=== PATIENT | male | born 1975 | race African-American/Black ===

== ENCOUNTER 2019-12-13 10:12 | Inpatient (IN) | payer MEDICARE, OTHER ==
[~2019-12-13 10:12] MED LIST: Heparin 10,000 UNITS/ 10 ML VIAL ONE
--- NOTE | 2019-12-13 10:56 | RAD ---
EXAM: CHEST ONE VIEW HISTORY: Fever. COMPARISON: None FINDINGS: A dual-lead left subclavian AICD device is noted in place. Cardiac silhouette is enlarged. Pulmonary vasculature is within normal limits The lungs are clear. The osseous structures are intact. IMPRESSION: 1. No acute cardiopulmonary process. 2. Cardiomegaly.
[2019-12-13 11:06] LABS: Hemoglobin 7.7 g/dL (14.0-18.0); Mean Corpuscular HGB CONC 32.9 g/dL (32.0-36.0); Mean Corpuscular Hemoglobin 35.6 pg (27.0-31.0); Mean Platelet Volume 7.3 fL (7.4-10.4); Platelet Count 229 thou/uL (130-400); RBC Distribution Width 16.3 % (11.5-14.5); Red Blood Cell (RBC) Count 2.15 mill/uL (4.70-6.10); White Blood Cell (WBC) Count 9.5 thou/uL (4.8-10.8)
[2019-12-13 11:37] LABS: Band 9 % (5-11); Eosinophils 4 % (0-10); Lymphocytes 16 % (21-51); MDiff Complete? YES; Macrocytosis SLIGHT = 6-15 cells (100X) (0-5/hpf); Monocytes 4 % (0-10); Myelocyte 1 % (0-0); Neutrophil 65 % (42-75); Platelet Morphology Comment Appears Adequate; Polychromasia SLIGHT = 2-3 cells (100X) (0-2/hpf); Reactive Lymphocytes 1 % (0-10)
[2019-12-13 11:50] LABS: ALT (SGPT) 9 U/L (8-55); AST (SGOT) 13 U/L (5-34); Albumin 4.6 g/dL (3.5-5.0); Alkaline Phosphatase 99 U/L (40-110); Anion Gap 21 mmol/L (10-20); BUN (Urea Nitrogen) 97 mg/dL (8.9-20.6); Calc. Creatinine Clearance 0 mL/min (70-130); Calcium 10.2 mg/dL (7.8-10.44); Carbon Dioxide 21 mmol/L (22-29); Chloride 113 mmol/L (98-107); Estimated GFR-MDRD 10; Globulin 2.7 g/dL (2.4-3.5); Glucose 110 mg/dL (70-105); Potassium 5.6 mmol/L (3.5-5.1); Protein, Total 7.3 g/dL (6.0-8.3); Sodium 149 mmol/L (136-145)
[2019-12-13 12:10] LABS: CKMB 2.1 ng/mL (0-6.6)
[2019-12-13 12:48] LABS: Bilirubin Negative (Negative); Blood, Urine Trace (Negative); Clarity Clear (Clear); Glucose, Urine (Dipstick) Normal (Negative); Leukocyte Negative Leu/uL (Negative); Nitrite Negative (Negative); Protein, Urine (Dipstick) 100 mg/dL (Neg-Trace); RBC/HPF 0-3 HPF (0-3); Squamous Epithelial None Seen HPF (0-3); Urobilinogen Normal mg/dL (Less than 2); WBC/HPF 0-3 HPF (0-3)
[2019-12-13 12:49] LABS: Bacteria/HPF Rare-Few HPF (None Seen)
[2019-12-13] MEDS ORDERED: Senokot S 8.6-50 MG TAB PO PRN (15:29)
[2019-12-13] MEDS ORDERED: CEFAZOLIN 2 GM in Premix Bag 1 BAG IVPB SCH (17:15)
--- NOTE | 2019-12-13 18:16 | CON ---
DATE OF CONSULTATION: HISTORY OF PRESENT ILLNESS: Matthew Benavides is a 44-year-old black male patient, lives with his brother, who has a left subclavian vein pacemaker seen in the emergency room, treated for COVID precautions. On 12/08, he had a COVID test drawn, but pending. He has COVID precautions. He was not feeling well, and laboratories obtained at 10 a.m. this morning revealed a hemoglobin of 7 and a potassium of 5.6. I was looking at my patient list and saw the patient on my list, was headed up to see him. I was not called by any physician. I arrived on the floor and was called by nursing at 1630 hours to see him. I was asked to place a dialysis catheter to initiate dialysis. Carbon dioxide is 21. He is a patient who has been followed by Dr. Rehman for some time for chronic renal failure. He has a history of chronic kidney disease with hypertensive nephropathy. BUN is 97, today, and in 2016, it was normal. Creatinine is 7.43, potassium is 5.6. Creatinine was normal in 2016. ALLERGIES: NONE. SOCIAL HISTORY: Tobacco use reported. Alcohol, none. MEDICATIONS: None listed. PAST SURGICAL HISTORY: Pacemaker, left subclavian vein, otherwise unknown. PAST MEDICAL HISTORY: Chronic kidney disease, hypertension, otherwise unknown. Medication list unknown. In 2016, it was noted that he did not have any past surgical history, but smoked 1 pack a day. There is no medication list on a 2016 visit. The patient states that he thinks he had the pacemaker placed at [facility], he thinks for bradycardia. Past history is uncertain. The patient's family cannot be contacted. FAMILY HISTORY: Not obtainable, reliable. REVIEW OF SYSTEMS: Noncontributory, except as noted above, but the patient has a cognitive impairment and reliability is not certain. PHYSICAL EXAMINATION: VITAL SIGNS: Height 6 feet, weight 149 pounds, 20 BMI, temperature 96.9, pulse rate 76, blood pressure 141/103. HEAD, EARS, EYES, NOSE, AND THROAT: Unremarkable. LUNGS: Clear to auscultation. CARDIAC: Regular rate and rhythm without murmur or gallop. ABDOMEN: Soft, nontender. EXTREMITIES: No ankle edema. Palpable radial pulses. Right antecubital IV. Left subclavian vein pacemaker. Left wrist IV. ASSESSMENT: 1. End-stage renal disease. We will need acute dialysis access for his hyperkalemia. He is mildly acidotic. We would plan bedside placement of a hemodialysis catheter. Family cannot be found and will not return calls, thus it is done as an emergency. COVID precautions were taken during this interview and placement of the catheter. 2. Hypertension. 3. Tobacco abuse. 4. Coronavirus disease precautions due to low-grade fever. No cough. PLAN: Placement in 48 hours, probably of a definitive cuffed tunneled dialysis catheter and an AV fistula. Job ID: [id number]
[2019-12-13] MEDS ORDERED: hydrALAZINE 20 MG/ML VIAL SLOW IVP PRN (20:04)
[2019-12-13] MEDS: hydrALAZINE 20 MG/ML VIAL SLOW IVP PRN (20:23)
[2019-12-14] MEDS: hydrALAZINE 20 MG/ML VIAL SLOW IVP PRN (01:58)
[2019-12-14] MEDS: Acetaminophen 325 MG TAB PO PRN ×2 (02:04→08:29)
[2019-12-14 05:02] LABS: Band 4 % (5-11); Hemoglobin 7.9 g/dL (14.0-18.0); Lymphocytes 15 % (21-51); MDiff Complete? YES; Mean Corpuscular HGB CONC 33.1 g/dL (32.0-36.0); Mean Corpuscular Hemoglobin 34.1 pg (27.0-31.0); Mean Platelet Volume 7.2 fL (7.4-10.4); Monocytes 11 % (0-10); Neutrophil 70 % (42-75); Platelet Count 149 thou/uL (130-400); Platelet Morphology Comment Appears Adequate; RBC Distribution Width 17.5 % (11.5-14.5); White Blood Cell (WBC) Count 7.5 thou/uL (4.8-10.8)
[2019-12-14 05:11] LABS: Albumin 4.1 g/dL (3.5-5.0); Anion Gap 17 mmol/L (10-20); BUN (Urea Nitrogen) 84 mg/dL (8.9-20.6); BUN/Creatinine Ratio 12.46; Calc. Creatinine Clearance 14 mL/min (70-130); Carbon Dioxide 25 mmol/L (22-29); Chloride 105 mmol/L (98-107); Estimated GFR-MDRD 11; Glucose 122 mg/dL (70-105); Iron 82 ug/dL (65-175); Iron Binding Capacity, Total 253 mcg/dL (261-462); Phosphorus 4.2 mg/dL (2.3-4.7); Potassium 4.9 mmol/L (3.5-5.1); Sodium 142 mmol/L (136-145)
[2019-12-14 05:39] LABS: Ferritin 352.51 ng/mL (22-322)
[2019-12-14 05:51] LABS: HBSAg Index 0.21 S/CO (0-0.99); Hep B Surf Ag Non-Reactive S/CO (NonReactive); Hep C IgG Ab Non-Reactive (NonReactive); Hep C Index 0.03 S/CO (0-0.79)
[2019-12-14 06:15] LABS: Hep B Core Total Ab Reactive (NonReactive); Hep B Surf AB Reactive (NonReactive)
[2019-12-14 06:19] LABS: Hep B Core Total Index 3.35 S/CO (0-0.79)
[2019-12-14] MEDS ORDERED: Non-Formulary Item 1 EACH (Magnesium Oxide [Magnesium] 400 MG) PO SCH (09:00)
[2019-12-14] MEDS ORDERED: Prevnar 13-Val Conj/PF 0.5 ML SYRINGE IM ONE (09:00)
--- NOTE | 2019-12-14 09:22 | CON ---
DATE OF CONSULTATION: CONSULTING PHYSICIAN: Ori Jones MD REQUESTING PHYSICIAN: REASON FOR CONSULTATION: Advanced kidney disease. IMPRESSION: 1. Advanced chronic kidney disease, stage 5 likely in the context of cardiorenal syndrome. 2. Cardiomyopathy, status post Automatic Implantable Cardioverter Defibrillator. 3. Hyperkalemia in the context of problem #1. 4. Hypertension. PLAN: 1. The patient is clearly at a point of requiring renal replacement therapy. 2. access in this patient. 3. Vein mapping in preparation for [facility] dialysis access. 4. I and O status to evaluate this patient's anemia, likely to be anemia of chronic kidney disease. 5. serology. 6. consult to outpatient dialysis placement. HISTORY OF PRESENT ILLNESS: A 44-year-old gentleman, who came to my office. He was noted to be clearly short of breath and he was sent for lab work . Decision was taken to send this patient to the ER given the complaint of some respiratory . PAST MEDICAL HISTORY: Significant for advanced cardiomyopathy, hypertension, chronic kidney disease, stage 5. MEDICATIONS: Reviewed and as documented on [employer]. ALLERGIES: NO KNOWN DRUG ALLERGIES. FAMILY HISTORY: outside hospital. No current history of kidney disease. SOCIAL HISTORY: No illicit drug use. No alcohol. The patient is mentally challenged. REVIEW OF SYSTEMS: As documented in the above history. All the other systems were reviewed and found not to be significantly related to present illness.. LABORATORY INVESTIGATION: Showed a hemoglobin of 7.7. Chemistry showed a sodium of 149 with potassium of 5.6, BUN of 97, and creatinine of 7.43. PHYSICAL EXAMINATION: GENERAL: The patient was found to be in some respiratory distress. Noted with the following vital signs. VITAL SIGNS: Afebrile, temperature 98.2, pulse 82, respiratory rate of 18, O2 saturation 99% with a blood pressure 180/80. HEENT: Unremarkable. CARDIOVASCULAR SYSTEM: First and second heart sounds were heard. RESPIRATORY SYSTEM: Clear to auscultation. DIGESTIVE SYSTEM: Abdomen somewhat distended. EXTREMITIES: No significant peripheral edema. SKIN: No new gross rash. LYMPHATICS: No peripheral lymphadenopathy. SUMMARY: A 44-year-old gentleman, who presented with some respiratory distress and being admitted for indication of hemodialysis. Job ID: [id number]
[2019-12-14] MEDS ORDERED: Heparin 10,000 UNITS/ 10 ML VIAL ONE ×2 (10:38→10:42)
[2019-12-14] MEDS: Magnesium Oxide 400 MG TAB PO SCH ×2 (10:42→20:02)
[2019-12-14] MEDS: Isosorbide Mononitrate (ER) 30 MG TAB PO SCH (10:43)
--- NOTE | 2019-12-14 11:08 | OP ---
DATE OF PROCEDURE: 12/13/2019 PREOPERATIVE DIAGNOSES: Hyperkalemia, end-stage renal disease, need acute dialysis access. POSTOPERATIVE DIAGNOSES: Hyperkalemia, end-stage renal disease, need acute dialysis access. PROCEDURE PERFORMED: Removal of right antecubital IV, right femoral vein Trialysis catheter. ANESTHESIA: 1% Xylocaine. DESCRIPTION OF PROCEDURE: With the patient at bedside, his right groin was clipped of hair, prepared with ChloraPrep, and draped in routine fashion. Local anesthetic was infiltrated in the skin and subcutaneous tissue. Trocar catheter was cannulated in the femoral vein. J-wire was threaded. Trocar catheter was removed. Skin site was enlarged sharply. Small and medium size dilators were placed over the J-wire into the femoral vein and removed. Distal port of the Trialysis catheter was placed with J-wire in the femoral vein. J-wire was removed. Catheter was secured with 2 interrupted suture of 3-0 nylon. Each port was aspirated with blood, flushed with heparinized saline solution. The patient tolerated the procedure well dressing applied. Job ID: [id number]
--- NOTE | 2019-12-14 12:24 | PRG ---
DATE OF SERVICE: 12/14/2019 SUBJECTIVE: Matthew Benavides is undergoing dialysis. He has had some oozing from his groin dialysis catheter. Of note is that when he was admitted, he had an IV in his right AC. He has a left subclavian vein pacemaker. The IV in his right AC was removed immediately. Ultrasound vein mapping is pending. Ultrasound pending COVID testing. Apparently, he [facility], results pending and repeat testing done on admission, results pending. When I saw the patient, the patient states he had a cough a few days, but does not have a cough, he has been afebrile in the hospital. Chest x-ray obtained, is unremarkable. Unlikely that the patient has COVID, this is only initiated because of low-grade temperature reported from somewhere in the emergency room. The patient's temperature was 99, 98 degrees. No fever noted this admission or in the emergency room, PLAN: Hemodialysis catheter, central line, right arm fistula most likely tomorrow. Job ID: [id number]
--- NOTE | 2019-12-14 13:06 | HP ---
CHIEF COMPLAINT: Sent for possible dialysis. HISTORY OF PRESENT ILLNESS: The patient is a 44-year-old male who lives with a brother, who comes in for dialysis. The patient was really unable to tell me much about his current situation. He denies, however, any shortness of breath or chest pain. There was some noted that he had a low-grade fever, for which he was put on antibiotics. Per ER, they wanted to rule him out for COVID. Per notes, he has advanced kidney disease, and he was sent here for starting him on dialysis. I tried to call the patient's brother, unable to get a hold of him. There were no previous records in the computer for me to review his previous medical history. PAST MEDICAL HISTORY: He has a history of renal disease, unclear of from what. He also has a history of pacemaker, defibrillator, the patient is unable to tell me why. He has a history of hypertension. PAST SURGICAL HISTORY: He does have a pacemaker. Unable to get most of the history since the patient is unable to tell me this. SOCIAL HISTORY: He does smoke cigarettes daily. He has smoked for about 15 years. No alcohol use or drug use per patient. CODE STATUS: Unclear at this time. ALLERGIES: NO KNOWN DRUG ALLERGIES. MEDICATIONS: He is on carvedilol 25 mg twice a day, hydralazine 50 mg q.8 hours, isosorbide 30 mg daily, magnesium 400 mg twice a day. He is also on Corlanor 5 mg p.o. b.i.d. REVIEW OF SYSTEMS: All negative except for the ones mentioned above in the HPI. PHYSICAL EXAMINATION: VITAL SIGNS: Temperature 99.6, pulse 89, respiratory rate 19, saturation 98% on room air, blood pressure 142/82. GENERAL: He is awake, alert, and oriented to self and place. CV: S1 and S2 present. No murmurs, rubs, or gallops. LUNGS: Clear to auscultation. No rhonchi or wheezes noted. ABDOMEN: Soft and nontender. Bowel sounds present x2. EXTREMITIES: Some edema. Pedal pulses are present x2. NEUROVASCULAR: No focal deficits noted. SKIN: No cuts, lesions, or bruises noted. PSYCH: The patient is slow to respond on certain things. The patient does have an intellectual disability upon talking with him. LABORATORY RESULTS: WBCs of 9.5, hemoglobin of 7.7, hematocrit of 23.3, platelets of 229. Chemistry; sodium of 149, potassium of 5.6, BUN of 97, creatinine 7.43. Troponin was mildly elevated at 0.096. He did have a chest x-ray that did not show any acute infiltrates or any abnormalities. He does have some cardiomegaly. ASSESSMENT AND PLAN: The patient is a 44-year-old male, who presents to the hospital with need for dialysis. 1. End-stage renal disease, on dialysis. This is new for him. Surgery has been consulted, so his Nephrology will put . 2. and start him on dialysis. 3. Possible coronavirus disease rule out. The patient was on antibiotics for low-grade fever; however, here he has not had a fever. We will continue the Levaquin for now. 4. Hypertension. We will continue his home medications. 5. Possible heart failure, unclear if it is systolic or diastolic. I will try and get more information from the patient's brother. I will try and call him again. 6. Deep venous thrombosis prophylaxis. We will put the patient on subcu Lovenox. Job ID: [id number]
[2019-12-14] MEDS: Enoxaparin Sodium 30 MG/0.3 ML SYRINGE SC SCH (13:11)
[2019-12-14] MEDS ORDERED: Non-Formulary Item 1 EACH (Hydralazine Hcl [Hydralazine Hcl] 50 MG) PO SCH (14:00)
[2019-12-14] MEDS: hydrALAZINE 25 MG TAB PO SCH ×2 (15:11→20:02)
[2019-12-14] MEDS ORDERED: Carvedilol 25 MG TAB PO SCH (16:30)
[2019-12-14] MEDS: Carvedilol 25 MG TAB PO SCH (17:06)
--- NOTE | 2019-12-14 19:28 | PRG ---
DATE OF SERVICE: 12/14/2019 SUBJECTIVE: The patient is seen and examined. Noted with the following vital signs. OBJECTIVE: VITAL SIGNS: Afebrile, temperature 97.8, pulse 89, respiratory rate of 16, O2 saturation of 100%, and blood pressure 137/90. HEENT: Unremarkable. CARDIOVASCULAR SYSTEM: First and second heart sounds were heard. RESPIRATORY SYSTEM: Clear to auscultation. DIGESTIVE SYSTEM: Revealed a benign abdomen. EXTREMITIES: No peripheral edema. SKIN: No new gross rash. LYMPHATICS: No peripheral lymphadenopathy. LABORATORY INVESTIGATION: Showed a hemoglobin of 7.9. Chemistry showed a ferritin of 325, iron saturation of 32, creatinine 6.74 with potassium of 4.9. IMPRESSION: 1. End-stage renal disease, on hemodialysis. 2. . 3. Hypertension. 4. Cardiomyopathy. PLAN: 1. The patient to continue with daily dialysis. We will possibly secure a tunneled dialysis catheter, so the femoral dialysis catheter will be discontinued in the next 24 hours. 2. Further management will be dependent on the clinical course. resort manager to be consulted and outpatient dialysis placement. Job ID: [id number]
[2019-12-15 05:12] LABS: Anion Gap 13 mmol/L (10-20); BUN (Urea Nitrogen) 62 mg/dL (8.9-20.6); BUN/Creatinine Ratio 11.09; Calc. Creatinine Clearance 16 mL/min (70-130); Calcium 9.8 mg/dL (7.8-10.44); Carbon Dioxide 31 mmol/L (22-29); Chloride 103 mmol/L (98-107); Estimated GFR-MDRD 14; Glucose 103 mg/dL (70-105); Magnesium 2.1 mg/dL (1.6-2.6); Phosphorus 5.1 mg/dL (2.3-4.7); Potassium 4.8 mmol/L (3.5-5.1); Sodium 142 mmol/L (136-145)
[2019-12-15] MEDS: Carvedilol 25 MG TAB PO SCH ×2 (09:14→17:18)
[2019-12-15] MEDS: Magnesium Oxide 400 MG TAB PO SCH ×2 (09:14→21:26)
[2019-12-15] MEDS: Isosorbide Mononitrate (ER) 30 MG TAB PO SCH (09:14)
[2019-12-15] MEDS: hydrALAZINE 25 MG TAB PO SCH ×3 (09:14→21:26)
[2019-12-15] MEDS: Enoxaparin Sodium 30 MG/0.3 ML SYRINGE SC SCH (09:15)
[2019-12-15 10:00] LABS: Hemoglobin 7.6 g/dL (14.0-18.0); Mean Corpuscular HGB CONC 32.2 g/dL (32.0-36.0); Mean Platelet Volume 7.1 fL (7.4-10.4); Platelet Count 93 thou/uL (130-400); RBC Distribution Width 17.1 % (11.5-14.5); White Blood Cell (WBC) Count 5.6 thou/uL (4.8-10.8)
[2019-12-15 10:17] LABS: #Eosinphils 0.2 thou/uL (0.0-0.7); #Lymphocytes 0.9 thou/uL (1.20-3.40); #Monocytes 0.8 thou/uL (0.11-0.59); #Neutrophils 3.6 thou/uL (1.40-6.50); %Basophils 0.2 % (0.0-1.0); %Eosinophils 3.2 % (0.0-10.0); %Monocytes 14.1 % (0.0-10.0); %Neutrophils 65.5 % (42.0-75.0)
[2019-12-15 10:18] LABS: MDiff Complete? YES; Macrocytosis SLIGHT = 6-15 cells (100X) (0-5/hpf); Platelet Morphology Comment Appears Decreased; Polychromasia SLIGHT = 2-3 cells (100X) (0-2/hpf)
[2019-12-15 10:25] LABS: Hypochromia SLIGHT = 6-15 cells (100X) (0-5/hpf); Ovalocytes SLIGHT = 2-5 cells (100X) (0-1/hpf)
--- NOTE | 2019-12-15 10:50 | PRG ---
DATE OF SERVICE: 12/15/2019 Matthew Benavides' COVID report is pending. The patient is 99.2 degrees, heart rate 92, and blood pressure 138/95. There are no respiratory symptoms. The patient had a COVID test reported from the group home at their testing center from [facility] was delayed due to equipment malfunction. COVID tests are expected to return today. The patient has been afebrile since being in the hospital for 3 days. He has no upper respiratory infections. His chest x-ray is normal. He does not have hypoxia. He does not have muscle aches. The only reason the COVID test was drawn in the emergency room because he had a temperature of 99 to 100.3 degrees for 3 weeks. With dialysis, oozing from around his groin dialysis catheter has become minimal. Today, we have planned a placement of a hemodialysis catheter and right arm fistula, however, that will be postponed until his COVID test return. This should be available today. Tentatively, I have scheduled him for for his right arm fistula, hemodialysis catheter central line. Vein mapping has not been performed due to the COVID testing pending. Job ID: [id number]
--- NOTE | 2019-12-15 13:34 | EKG ---
Test Reason : Blood Pressure : / mmHG Vent. Rate : 076 BPM Atrial Rate : 076 BPM P-R Int : 150 ms QRS Dur : 088 ms QT Int : 384 ms P-R-T Axes : 062 -15 102 degrees QTc Int : 432 ms Normal sinus rhythm T wave abnormality, consider lateral ischemia Abnormal ECG Confirmed by LAXMI AGUILAR ([id number]), housekeeping laundry worker ALEX NEW ([id number]) on 12/15/2019 1:34:06 PM Referred By: Confirmed By:LAXMI AGUILAR
--- NOTE | 2019-12-15 17:07 | PRG ---
DATE OF SERVICE: 12/15/2019 SUBJECTIVE: The patient was seen and noted with the following vital signs. OBJECTIVE: VITAL SIGNS: Afebrile, temperature 98.5, pulse 82, blood pressure 137/75, respiratory rate of 18, O2 saturation of 99%. HEENT: Unremarkable. CARDIOVASCULAR: First and second heart sounds were heard. RESPIRATORY: Clear to auscultation. DIGESTIVE SYSTEM: Revealed a benign abdomen with positive bowel sounds. EXTREMITIES: No peripheral edema. SKIN: No new gross rash. LYMPHATICS: No peripheral lymphadenopathy. IMPRESSION: 1. End-stage renal disease, on hemodialysis. 2. Advanced cardiomyopathy. 3. Mental retardation. PLAN: 1. The patient is continued with daily dialysis gradually increasing the duration and the degree of clearance. 2. Awaiting the COVID status prior to scheduling this patient for long-term access. 3. Further management to be dependent on the clinical course. 4. software test manager already on the case is planning for outpatient dialysis placement. Job ID: [id number]
[2019-12-15] MEDS: Tuberculin PPD 0.1 ML VIAL I-DERMAL SCH ×2 (23:46)
[2019-12-16 05:38] LABS: Band 1 % (5-11); Hemoglobin 6.8 g/dL (14.0-18.0); Lymphocytes 20 % (21-51); MDiff Complete? YES; Mean Corpuscular HGB CONC 33.1 g/dL (32.0-36.0); Mean Corpuscular Hemoglobin 34.2 pg (27.0-31.0); Mean Platelet Volume 7.5 fL (7.4-10.4); Monocytes 17 % (0-10); Neutrophil 61 % (42-75); Platelet Count 98 thou/uL (130-400); Platelet Morphology Comment Appears Decreased; RBC Distribution Width 16.6 % (11.5-14.5); Reactive Lymphocytes 1 % (0-10); White Blood Cell (WBC) Count 4.7 thou/uL (4.8-10.8)
[2019-12-16 05:58] LABS: Albumin 3.9 g/dL (3.5-5.0); Anion Gap 16 mmol/L (10-20); BUN (Urea Nitrogen) 76 mg/dL (8.9-20.6); BUN/Creatinine Ratio 10.84; Calc. Creatinine Clearance 13 mL/min (70-130); Calcium 9.5 mg/dL (7.8-10.44); Carbon Dioxide 27 mmol/L (22-29); Chloride 102 mmol/L (98-107); Estimated GFR-MDRD 10; Glucose 89 mg/dL (70-105); Phosphorus 6.6 mg/dL (2.3-4.7); Potassium 5.5 mmol/L (3.5-5.1); Sodium 139 mmol/L (136-145)
[2019-12-16] MEDS: Enoxaparin Sodium 30 MG/0.3 ML SYRINGE SC SCH (09:49)
[2019-12-16] MEDS: Carvedilol 25 MG TAB PO SCH ×2 (09:50→16:49)
[2019-12-16] MEDS: Magnesium Oxide 400 MG TAB PO SCH ×2 (09:50→20:47)
[2019-12-16] MEDS: hydrALAZINE 25 MG TAB PO SCH ×3 (09:50→20:47)
[2019-12-16] MEDS: Isosorbide Mononitrate (ER) 30 MG TAB PO SCH (09:50)
[2019-12-16] MEDS ORDERED: Heparin 10,000 UNITS/ 10 ML VIAL ONE (13:30)
[2019-12-16 14:26] LABS: Actual Bicarbonate (HCO3v) 26 mEq/L (22-28); Base Excess 2.4 mEq/L (-2.0 to +3.0); Calcium, Ionized 1.16 mmol/L (1.16-1.32); Chloride (ABG LAB) 102 mmol/L (98-106); Hemoglobin (Hb) 8.3 g/dL (13.2-17.3); Potassium - ABG Lab 4.47 mmol/L (3.70-5.30); pH (venous) 7.46 (7.32-7.43)
--- NOTE | 2019-12-16 14:54 | PRG ---
DATE OF SERVICE: 12/16/2019 SUBJECTIVE: The patient noted to be bleeding quite significantly through the femoral dialysis catheter placement site. OBJECTIVE: VITAL SIGNS: Noted with the following vital signs; afebrile, temperature 98.7, pulse 90, respiratory rate of 20, O2 saturation of 97%, and blood pressure 134/83. HEENT: Unremarkable. CARDIOVASCULAR SYSTEM: First and second heart sounds were heard. RESPIRATORY: Clear to auscultation. DIGESTIVE: Revealed a benign abdomen. EXTREMITIES: No peripheral edema. SKIN: No new gross rash. MUSCULOSKELETAL: Revealed evidence of significant bleed around the right groin area insertion section of the femoral catheter. IMPRESSION: 1. End-stage renal disease, on hemodialysis. 2. Advanced cardiomyopathy. 3. Acute blood loss anemia. PLAN: 1. The patient to be transfused with 2 units of blood. 2. Monitor the hemoglobin and hematocrit serially, and if the patient continues to significantly lose blood through the femoral dialysis catheter, this access might need to be removed, so that hemostasis can be maintained. 3. Awaiting the results of the COVID-19 to secure a tunneled dialysis catheter and hopefully get rid of the femoral catheter for good. 4. including prophylactic Lovenox. 5. If no emergent indication, we will hold off on dialyzing this patient unless the bleeding at the femoral catheter site stops. 6. Further management will be dependent on the clinical course. Job ID: [id number]
--- NOTE | 2019-12-16 14:57 | PRG ---
DATE OF SERVICE: 12/16/2019 HISTORY OF PRESENT ILLNESS: A 44-year-old male, awaiting COVID report. The patient had low-grade temperature, 99 to 100 degrees in the fpc for 3 weeks intermittently. He never had a cough, never had hypoxia, and never had myalgias. A COVID test was submitted on December 08. There were laboratory technical difficulties. I have been in touch with the [facility] and the laboratory and results are pending today. There was some report that the specimen was inadequate and COVID swab was resubmitted last night. I discussed with [facility] today and there is no report as far as they know that the specimen was inadequate and they expect results today. The patient in the hospital continued to be asymptomatic without fever, without respiratory compromise, without hypoxia, without myalgias. He is on COVID precautions. He has a temporary right groin dialysis catheter. There was some bleeding around the insertion site. Medical is concerned that it maybe intra-arterial, but he has been on dialysis for 3 days now and there are no problems or indications that this is arterial. More likely, he is bleeding from skin and subcutaneous tissue bleeding. Sandbag is in place. His hemoglobin has dropped and he has been given 2 units of blood. He has not become hypotensive. The patient is alert and oriented. I have asked them to leave the catheter in place. I expect the COVID report to be back today as it will determine anesthetic management. ASSESSMENT AND PLAN: Bleeding around the catheter site due to skin and soft tissues. Continue to leave the catheter in place and sandbag as necessary. Await COVID results today. If COVID results do not return today, I will place a pursestring suture around the catheter, but hopefully that results will return and this will not be necessary. If we cannot get COVID results, he may have to wait until next week to have his hemodialysis catheter placed. Hopefully, that results will be available later today. Job ID: [id number]
[2019-12-16] MEDS ORDERED: Lidocaine 1% (PF) 30 ML VIAL ONE (15:56)
[2019-12-16 22:55] LABS: Hemoglobin 8.8 g/dL (14.0-18.0)
[2019-12-16] MEDS ORDERED: READ PPD TEST SITE PO SCH (23:30)
[2019-12-17 05:52] LABS: Mean Corpuscular HGB CONC 33.1 g/dL (32.0-36.0); Mean Corpuscular Hemoglobin 32.7 pg (27.0-31.0); Mean Corpuscular Volume 98.8 fL (78.0-98.0); RBC Distribution Width 16.9 % (11.5-14.5); Red Blood Cell (RBC) Count 2.43 mill/uL (4.70-6.10)
[2019-12-17 06:00] LABS: Anion Gap 14 mmol/L (10-20); BUN (Urea Nitrogen) 51 mg/dL (8.9-20.6); BUN/Creatinine Ratio 9.14; Calc. Creatinine Clearance 16 mL/min (70-130); Calcium 9.4 mg/dL (7.8-10.44); Carbon Dioxide 28 mmol/L (22-29); Chloride 102 mmol/L (98-107); Estimated GFR-MDRD 14; Glucose 84 mg/dL (70-105); Magnesium 2.2 mg/dL (1.6-2.6); Phosphorus 5.3 mg/dL (2.3-4.7); Sodium 139 mmol/L (136-145)
[2019-12-17 06:10] LABS: #Eosinphils 0.2 thou/uL (0.0-0.7); #Lymphocytes 0.7 thou/uL (1.20-3.40); #Monocytes 0.7 thou/uL (0.11-0.59); #Neutrophils 3.3 thou/uL (1.40-6.50); %Basophils 0.1 % (0.0-1.0); %Eosinophils 4.2 % (0.0-10.0); %Lymphocytes 14.1 % (21.0-51.0); %Monocytes 14.1 % (0.0-10.0); %Neutrophils 67.5 % (42.0-75.0); Mean Platelet Volume 8.4 fL (7.4-10.4); Platelet Count 55 thou/uL (130-400); White Blood Cell (WBC) Count 4.8 thou/uL (4.8-10.8)
--- NOTE | 2019-12-17 06:40 | PDOC.HOSPP ---
- Subjective Encounter Date: 12/15/19 Encounter Time: 10:15 Subjective: pt up in bed no complains - Objective Vital Signs & Weight: Vital Signs (12 hours) Temp Pulse Resp BP Pulse Ox 12/17/19 04:23 98.3 F 87 18 137/87 99 12/17/19 00:00 99.5 F 94 20 133/74 99 12/16/19 19:49 99.2 F 86 18 140/90 98 Weight Admit Weight 149 lb 9.6 oz Weight 146 lb Most Recent Monitor Data Heart Rate from ECG 85 NIBP 145/87 Respiration from ECG 18 I&O: 12/15/19 12/16/19 12/17/19 06:59 06:59 06:59 Intake Total 600 360 850 Output Total 1380 650 510 Balance -780 -290 340 Result Diagrams: 12/17/19 05:21 12/17/19 05:21 Hospitalist ROS - Review of Systems Cardiovascular: denies: chest pain, palpitations, orthopnea, paroxysmal noc. dyspnea, edema, light headedness, other Gastrointestinal: denies: nausea, vomiting, abdominal pain, diarrhea, constipation, melena, hematochezia, other Genitourinary: denies: dysuria, frequency, incontinence, hematuria, retention, other - Medication Medications: Active Medications Generic Name Dose Route Start Last Admin Trade Name Freq PRN Reason Stop Dose Admin Carvedilol 25 mg 12/14/19 17:00 12/16/19 16:49 Coreg PO 25 mg BID-WM MAURA Administration Hydralazine HCl 10 mg 12/13/19 20:05 12/14/19 01:58 Apresoline SLOW IVP 10 mg Q4H PRN Administration SBP Greater Than 180 Hydralazine HCl 50 mg 12/14/19 15:00 12/16/19 20:47 Apresoline PO 50 mg TID MAURA Administration Isosorbide Mononitrate 30 mg 12/14/19 09:00 12/16/19 09:50 Imdur Er PO 30 mg DAILY MAURA Administration Magnesium Oxide 400 mg 12/14/19 09:00 12/16/19 20:47 Magnesium Oxide PO 400 mg BID MAURA Administration Read Ppd Test Site 0 each 12/16/19 23:30 12/17/19 00:04 PO 12/17/19 07:00 1 each 2330 MAURA Administration Sodium Chloride 10 ml 12/14/19 09:00 12/16/19 20:48 Flush - Normal Saline IVF 10 ml Q12HR MAURA Administration - Exam Heart: negative: RRR, no murmur, no gallops, no rubs, normal peripheral pulses, irregular, diminshed peripheral pulses, murmur present, II/IV, III/IV Respiratory: negative: CTAB, no wheezes, no rales, no ronchi, normal chest expansion, no tachypnea, normal percussion, rales, rhonchi, tachypneic, wheezes Gastrointestinal: negative: soft, non-tender, non-distended, normal bowel sounds , no palpable masses, no hepatomegaly, no splenomegaly, no bruit, no guarding, no rigidity, tender to palpation, distended, diminished bowl sounds, voluntary guarding Extremities - other findings: right groin dressing bleeding Hosp A/P (1) Hyperkalemia Code(s): E87.5 - HYPERKALEMIA Status: Acute (2) CKD (chronic kidney disease) Code(s): N18.9 - CHRONIC KIDNEY DISEASE, UNSPECIFIED Status: Acute (3) Systolic heart failure Code(s): I50.20 - UNSPECIFIED SYSTOLIC (CONGESTIVE) HEART FAILURE Status: Acute (4) Mental deficiency Code(s): F79 - UNSPECIFIED INTELLECTUAL DISABILITIES Status: Acute - Plan pt to start dialysis. He has no fever, no cough. COVID pending. will monitor. surgery and nephrology consulted.
--- NOTE | 2019-12-17 06:46 | PDOC.HOSPP ---
- Subjective Encounter Date: 12/16/19 Encounter Time: 12:30 Subjective: pt up in bed no complains, but has significant bleeding from his right groin - Objective Vital Signs & Weight: Vital Signs (12 hours) Temp Pulse Resp BP Pulse Ox 12/17/19 04:23 98.3 F 87 18 137/87 99 12/17/19 00:00 99.5 F 94 20 133/74 99 12/16/19 19:49 99.2 F 86 18 140/90 98 Weight Admit Weight 149 lb 9.6 oz Weight 146 lb Most Recent Monitor Data Heart Rate from ECG 85 NIBP 145/87 Respiration from ECG 18 I&O: 12/15/19 12/16/19 12/17/19 06:59 06:59 06:59 Intake Total 600 360 850 Output Total 1380 650 510 Balance -780 -290 340 Result Diagrams: 12/17/19 05:21 12/17/19 05:21 Hospitalist ROS - Review of Systems Cardiovascular: denies: chest pain, palpitations, orthopnea, paroxysmal noc. dyspnea, edema, light headedness, other Gastrointestinal: denies: nausea, vomiting, abdominal pain, diarrhea, constipation, melena, hematochezia, other Genitourinary: denies: dysuria, frequency, incontinence, hematuria, retention, other - Medication Medications: Active Medications Generic Name Dose Route Start Last Admin Trade Name Freq PRN Reason Stop Dose Admin Carvedilol 25 mg 12/14/19 17:00 12/16/19 16:49 Coreg PO 25 mg BID-WM MAURA Administration Hydralazine HCl 10 mg 12/13/19 20:05 12/14/19 01:58 Apresoline SLOW IVP 10 mg Q4H PRN Administration SBP Greater Than 180 Hydralazine HCl 50 mg 12/14/19 15:00 12/16/19 20:47 Apresoline PO 50 mg TID MAURA Administration Isosorbide Mononitrate 30 mg 12/14/19 09:00 12/16/19 09:50 Imdur Er PO 30 mg DAILY MAURA Administration Magnesium Oxide 400 mg 12/14/19 09:00 12/16/19 20:47 Magnesium Oxide PO 400 mg BID MAURA Administration Read Ppd Test Site 0 each 12/16/19 23:30 12/17/19 00:04 PO 12/17/19 07:00 1 each 2330 MAURA Administration Sodium Chloride 10 ml 12/14/19 09:00 12/16/19 20:48 Flush - Normal Saline IVF 10 ml Q12HR MAURA Administration - Exam Neck: negative: supple, symmetric, no JVD, no thyromegaly, no lymphadenopathy, no carotid bruit, JVD Heart: negative: RRR, no murmur, no gallops, no rubs, normal peripheral pulses, irregular, diminshed peripheral pulses, murmur present, II/IV, III/IV Respiratory: negative: CTAB, no wheezes, no rales, no ronchi, normal chest expansion, no tachypnea, normal percussion, rales, rhonchi, tachypneic, wheezes Gastrointestinal: soft, normal bowel sounds Extremities - other findings: right groin significant bleeding noted to groin, appears arterial Hosp A/P (1) Hyperkalemia Code(s): E87.5 - HYPERKALEMIA Status: Acute (2) CKD (chronic kidney disease) Code(s): N18.9 - CHRONIC KIDNEY DISEASE, UNSPECIFIED Status: Acute (3) Systolic heart failure Code(s): I50.20 - UNSPECIFIED SYSTOLIC (CONGESTIVE) HEART FAILURE Status: Acute (4) Mental deficiency Code(s): F79 - UNSPECIFIED INTELLECTUAL DISABILITIES Status: Acute - Plan pt to start dialysis. He has no fever, no cough. COVID pending. will monitor. surgery and nephrology consulted. 12/15 pt's COVID pending, his right groin line has significant bleeding. appears arterial. surgery and nephrology called in regards to this. pt given 2untis of blood due to low hh. He is asymptomatic. ABG done appear venous. will continue to monitor. ultrafoam applied to the right groin to see if this would help with the bleeding. may need suturing to be done.
[2019-12-17] MEDS: Isosorbide Mononitrate (ER) 30 MG TAB PO SCH (09:34)
[2019-12-17] MEDS: Magnesium Oxide 400 MG TAB PO SCH ×2 (09:34→21:11)
[2019-12-17] MEDS: Carvedilol 25 MG TAB PO SCH ×2 (09:35→16:53)
[2019-12-17] MEDS: hydrALAZINE 25 MG TAB PO SCH ×3 (09:35→21:11)
[2019-12-17 11:51] LABS: Hemoglobin 8.4 g/dL (14.0-18.0)
--- NOTE | 2019-12-17 16:39 | PRG ---
DATE OF SERVICE: 12/17/2019 Matthew Benavides had COVID testing on December 08 from [facility]. There were problems with the testing facility and the specimen was sent to another facility. I received a text message last night from [facility] and the testing facility that his COVID is negative. I have communicated nursing last night per telephone to discontinue his COVID precautions as he is negative. As I arrived this morning, he still is on COVID precautions. PPEs are being wasted treating him with precautions and I will discontinue this as he is COVID negative. He is on the schedule for Friday for placement of a hemodialysis catheter, a right arm fistula, and a central line. Since placing the pursestring suture around his right groin dialysis catheter, his bleeding has been minimal. Of note is that, the patient had a low-grade temperature of 99 to 100 degrees at the residential for 3 weeks, but never had a cough, never had myalgias, and did not have any other symptoms. Since being in the hospital, he has been afebrile. His chest x-ray is normal. He is oxygenating normal and he does not have a cough. Job ID: [id number]
--- NOTE | 2019-12-17 16:42 | PDOC.HOSPP ---
- Subjective Encounter Date: 12/17/19 Encounter Time: 10:15 Subjective: pt up in bed no complains - Objective Vital Signs & Weight: Vital Signs (12 hours) Temp Pulse Resp BP BP Pulse Ox 12/17/19 13:22 98.2 F 86 16 150/87 H 99 12/17/19 08:07 92 150/94 H 12/17/19 08:00 98.7 F 16 157/108 H 98 Weight Admit Weight 149 lb 9.6 oz Weight 146 lb Most Recent Monitor Data Heart Rate from ECG 85 NIBP 145/87 Respiration from ECG 18 I&O: 12/16/19 12/17/19 12/18/19 06:59 06:59 06:59 Intake Total 360 850 Output Total 650 510 500 Balance -290 340 -500 Result Diagrams: 12/17/19 11:35 12/17/19 05:21 Hospitalist ROS - Review of Systems Cardiovascular: denies: chest pain, palpitations, orthopnea, paroxysmal noc. dyspnea, edema, light headedness, other Gastrointestinal: denies: nausea, vomiting, abdominal pain, diarrhea, constipation, melena, hematochezia, other Genitourinary: denies: dysuria, frequency, incontinence, hematuria, retention, other - Medication Medications: Active Medications Generic Name Dose Route Start Last Admin Trade Name Freq PRN Reason Stop Dose Admin Carvedilol 25 mg 12/14/19 17:00 12/17/19 09:35 Coreg PO 25 mg BID-WM MAURA Administration Hydralazine HCl 10 mg 12/13/19 20:05 12/14/19 01:58 Apresoline SLOW IVP 10 mg Q4H PRN Administration SBP Greater Than 180 Hydralazine HCl 50 mg 12/14/19 15:00 12/17/19 09:35 Apresoline PO 50 mg TID MAURA Administration Isosorbide Mononitrate 30 mg 12/14/19 09:00 12/17/19 09:34 Imdur Er PO 30 mg DAILY MAURA Administration Magnesium Oxide 400 mg 12/14/19 09:00 12/17/19 09:34 Magnesium Oxide PO 400 mg BID MAURA Administration Sodium Chloride 10 ml 12/14/19 09:00 12/16/19 20:48 Flush - Normal Saline IVF 10 ml Q12HR MAURA Administration - Exam Neck: negative: supple, symmetric, no JVD, no thyromegaly, no lymphadenopathy, no carotid bruit, JVD Heart: negative: RRR, no murmur, no gallops, no rubs, normal peripheral pulses, irregular, diminshed peripheral pulses, murmur present, II/IV, III/IV Respiratory: negative: CTAB, no wheezes, no rales, no ronchi, normal chest expansion, no tachypnea, normal percussion, rales, rhonchi, tachypneic, wheezes Gastrointestinal: negative: soft, non-tender, non-distended, normal bowel sounds , no palpable masses, no hepatomegaly, no splenomegaly, no bruit, no guarding, no rigidity, tender to palpation, distended, diminished bowl sounds, voluntary guarding Extremities: 1+ LE edema Extremities - other findings: right groin dressing mild drainage Hosp A/P (1) Hyperkalemia Code(s): E87.5 - HYPERKALEMIA Status: Acute (2) CKD (chronic kidney disease) Code(s): N18.9 - CHRONIC KIDNEY DISEASE, UNSPECIFIED Status: Acute (3) Systolic heart failure Code(s): I50.20 - UNSPECIFIED SYSTOLIC (CONGESTIVE) HEART FAILURE Status: Acute (4) Mental deficiency Code(s): F79 - UNSPECIFIED INTELLECTUAL DISABILITIES Status: Acute - Plan pt to start dialysis. He has no fever, no cough. COVID pending. will monitor. surgery and nephrology consulted. 12/15 pt's COVID pending, his right groin line has significant bleeding. appears arterial. surgery and nephrology called in regards to this. pt given 2untis of blood due to low hh. He is asymptomatic. ABG done appear venous. will continue to monitor. ultrafoam applied to the right groin to see if this would help with the bleeding. may need suturing to be done. 12/16 pt's first COVID test is negative. Second test was done since initially there was a problem with the machine. He has no symptoms. He has been afebrile. He is not on any abx. His right groin line bleeding is stable. Hh is stable. He will get a line placed in or on friday per surgery.
--- NOTE | 2019-12-17 18:04 | PRG ---
DATE OF SERVICE: 12/17/2019 SUBJECTIVE: The patient was seen and examined. He is still having some oozing around the femoral catheter site. OBJECTIVE: VITAL SIGNS: Noted with the following vital signs; afebrile, temperature 98.5, pulse of 85, respiratory rate of 16, O2 saturation of 97%. HEENT: Unremarkable. CARDIOVASCULAR SYSTEM: First and second heart sounds were heard. RESPIRATORY SYSTEM: Clear to auscultation. DIGESTIVE SYSTEM: Revealed a benign abdomen. EXTREMITIES: Showed no peripheral edema. MUSCULOSKELETAL: Showed evidence of bleeding around the recently placed dialysis catheter. PLAN: 1. The patient's dialysis is on hold today because of continued bleed around the catheter site. We will re-evaluate tomorrow. At this point, there is no emergent indication for renal replacement therapy. If the patient continues not to have any indication for dialysis, we will hold off peritoneal dialysis catheter that had been placed. 2. From the surgical note, it appears the patient is COVID-19 negative. Therefore, the patient is likely to secure a tunneled dialysis catheter on Friday. 3. Further management to be dependent on the clinical course. Job ID: [id number]
[2019-12-18] MEDS: Isosorbide Mononitrate (ER) 30 MG TAB PO SCH (08:58)
[2019-12-18] MEDS: Magnesium Oxide 400 MG TAB PO SCH ×2 (08:58→20:03)
[2019-12-18] MEDS: hydrALAZINE 25 MG TAB PO SCH ×3 (08:58→20:03)
[2019-12-18] MEDS: Carvedilol 25 MG TAB PO SCH ×2 (08:58→17:12)
[2019-12-18 11:17] LABS: #Eosinphils 0.2 thou/uL (0.0-0.7); #Lymphocytes 0.6 thou/uL (1.20-3.40); #Monocytes 0.6 thou/uL (0.11-0.59); #Neutrophils 3.6 thou/uL (1.40-6.50); %Basophils 0.4 % (0.0-1.0); %Eosinophils 3.9 % (0.0-10.0); %Lymphocytes 11.7 % (21.0-51.0); %Monocytes 11.2 % (0.0-10.0); %Neutrophils 72.9 % (42.0-75.0); Hemoglobin 8.2 g/dL (14.0-18.0); Mean Corpuscular HGB CONC 33.1 g/dL (32.0-36.0); Mean Corpuscular Volume 99.5 fL (78.0-98.0); Mean Platelet Volume 8.4 fL (7.4-10.4); Platelet Count 73 thou/uL (130-400); RBC Distribution Width 16.6 % (11.5-14.5)
[2019-12-18 11:27] LABS: Anion Gap 16 mmol/L (10-20); BUN (Urea Nitrogen) 69 mg/dL (8.9-20.6); Calc. Creatinine Clearance 12 mL/min (70-130); Calcium 9.6 mg/dL (7.8-10.44); Carbon Dioxide 27 mmol/L (22-29); Chloride 100 mmol/L (98-107); Estimated GFR-MDRD 10; Glucose 146 mg/dL (70-105); Potassium 4.8 mmol/L (3.5-5.1); Sodium 138 mmol/L (136-145)
[2019-12-18] MEDS ORDERED: Heparin 10,000 UNITS/ 10 ML VIAL ONE (13:15)
--- NOTE | 2019-12-18 14:52 | PDOC.HOSPP ---
- Subjective Encounter Date: 12/18/19 Encounter Time: 10:30 Subjective: THe patient is seen in dialysis. He has no complaints, does not know why he's in the hospital. Has no nausea or vomiting. No shortness of breath - Objective Vital Signs & Weight: Vital Signs (12 hours) Temp Pulse Resp BP Pulse Ox 12/18/19 07:22 99.1 F 84 16 153/97 H 99 12/18/19 04:00 99.0 F 85 16 156/105 H 99 Weight Admit Weight 149 lb 9.6 oz Weight 140 lb 14.4 oz Most Recent Monitor Data Heart Rate from ECG 85 NIBP 145/87 Respiration from ECG 18 I&O: 12/17/19 12/18/19 12/19/19 06:59 06:59 06:59 Intake Total 850 Output Total 510 700 100 Balance 340 -700 -100 Result Diagrams: 12/18/19 10:15 12/18/19 10:15 Hospitalist ROS - Review of Systems Constitutional: denies: fever, chills - Medication Medications: Active Medications Generic Name Dose Route Start Last Admin Trade Name Freq PRN Reason Stop Dose Admin Carvedilol 25 mg 12/14/19 17:00 12/18/19 08:58 Coreg PO 25 mg BID-WM MAURA Administration Hydralazine HCl 10 mg 12/13/19 20:05 12/14/19 01:58 Apresoline SLOW IVP 10 mg Q4H PRN Administration SBP Greater Than 180 Hydralazine HCl 50 mg 12/14/19 15:00 12/18/19 08:58 Apresoline PO 50 mg TID MAURA Administration Isosorbide Mononitrate 30 mg 12/14/19 09:00 12/18/19 08:58 Imdur Er PO 30 mg DAILY MAURA Administration Magnesium Oxide 400 mg 12/14/19 09:00 12/18/19 08:58 Magnesium Oxide PO 400 mg BID MAURA Administration Sodium Chloride 10 ml 12/14/19 09:00 12/17/19 21:12 Flush - Normal Saline IVF 10 ml Q12HR MAURA Administration - Exam General Appearance: NAD, awake alert Eye: PERRL, anicteric sclera ENT: normocephalic atraumatic, no oropharyngeal lesions Neck: no JVD Heart: RRR, no murmur, no gallops, no rubs Respiratory: CTAB, no wheezes, no rales, no ronchi Gastrointestinal: soft Gastrointestinal - other findings: mild upper quadrant tenderness Extremities: no cyanosis, no clubbing, no edema Skin: normal turgor, no lesions, no rashes Hosp A/P - Plan THis is 44 year old male who presented to the ER for starting dialysis ESRD - continue dialysis. Plan for patient to get tunneled dialysis catheter on Friday - COVID 19 negative Hypertension - continue coreg and hydralazine ANemia - possibly from CKD - hemoglobin 8.2 COde status: Full code
--- NOTE | 2019-12-18 18:08 | ULT ---
BILATERAL UPPER EXTREMITY VENOUS DUPLEX EXAM: 12/18/19 INDICATION: Dialysis access evaluation. RIGHT UPPER EXTREMITY BRACHIAL ARTERY: 0.51 mm RADIAL ARTERY: 0.27 mm ULNAR ARTERY: 0.42 mm CEPHALIC VEIN Axilla: 0.28 mm Proximal humerus: 0.24 mm Mid humerus: 0.24 mm Distal humerus: 0.28 mm Elbow: 0.19 mm Mid forearm: 0.16 mm BASILIC VEIN: Axilla: 0.30 mm Proximal humerus: 0.26 mm Mid humerus: 0.31 mm Distal humerus: 0.33 mm Elbow: 0.21 mm Mid forearm: 0.17 mm LEFT UPPER EXTREMITY BRACHIAL ARTERY: 0.51 mm RADIAL ARTERY: 0.29 mm ULNAR ARTERY: 0.25 mm CEPHALIC VEIN Axilla: 0.23 mm Proximal humerus: 0.18 mm Mid humerus: 0.21 mm Distal humerus: 0.22 mm Elbow: 0.27 mm Mid forearm: 0.20 mm BASILIC VEIN Axilla: 0.27 mm Proximal humerus: 0.18 mm Mid humerus: 0.25 mm Distal humerus: 0.22 mm Elbow: 0.20 mm Mid forearm: 0.19 mm POS: AGW
[2019-12-18 23:21] LABS: CKMB 1.8 ng/mL (0-6.6)
[2019-12-19 05:24] LABS: Anion Gap 13 mmol/L (10-20); BUN (Urea Nitrogen) 37 mg/dL (8.9-20.6); Calc. Creatinine Clearance 17 mL/min (70-130); Calcium 9.1 mg/dL (7.8-10.44); Carbon Dioxide 30 mmol/L (22-29); Chloride 100 mmol/L (98-107); Estimated GFR-MDRD 15; Glucose 98 mg/dL (70-105); Potassium 4.7 mmol/L (3.5-5.1); Sodium 138 mmol/L (136-145)
[2019-12-19] MEDS: hydrALAZINE 25 MG TAB PO SCH ×3 (08:24→20:11)
[2019-12-19] MEDS: Carvedilol 25 MG TAB PO SCH ×2 (08:24→16:24)
[2019-12-19] MEDS: Magnesium Oxide 400 MG TAB PO SCH ×2 (08:25→20:11)
[2019-12-19] MEDS: Isosorbide Mononitrate (ER) 30 MG TAB PO SCH (08:25)
--- NOTE | 2019-12-19 15:26 | PDOC.HOSPP ---
- Subjective Encounter Date: 12/19/19 Encounter Time: 15:24 Subjective: Mr. Benavides was seen today in follow-up of new End stage renal disease. He does not have any new complaints. - Objective Vital Signs & Weight: Vital Signs (12 hours) Temp Pulse Resp BP BP BP BP 12/19/19 15:03 102.7 F H 103 H 17 140/86 12/19/19 14:20 99 137/83 12/19/19 11:02 99.6 F 95 16 140/81 12/19/19 07:47 99.8 F H 90 16 146/94 H 12/19/19 07:25 99.8 F H 96 16 144/93 H 12/19/19 04:02 99.1 F 91 20 140/93 H Pulse Ox 12/19/19 15:03 98 12/19/19 14:20 12/19/19 11:02 98 12/19/19 07:47 97 12/19/19 07:25 98 12/19/19 04:02 98 Weight Admit Weight 149 lb 9.6 oz Weight 140 lb 14.4 oz Most Recent Monitor Data Heart Rate from ECG 85 NIBP 145/87 Respiration from ECG 18 I&O: 12/18/19 12/19/19 12/20/19 06:59 06:59 06:59 Output Total 700 2300 Balance -700 -2300 Result Diagrams: 12/18/19 10:15 12/19/19 04:56 Hospitalist ROS - Medication Medications: Active Medications Generic Name Dose Route Start Last Admin Trade Name Freq PRN Reason Stop Dose Admin Carvedilol 25 mg 12/14/19 17:00 12/19/19 08:24 Coreg PO 25 mg BID-WM MAURA Administration Hydralazine HCl 10 mg 12/13/19 20:05 12/14/19 01:58 Apresoline SLOW IVP 10 mg Q4H PRN Administration SBP Greater Than 180 Hydralazine HCl 50 mg 12/14/19 15:00 12/19/19 14:20 Apresoline PO 50 mg TID MAURA Administration Isosorbide Mononitrate 30 mg 12/14/19 09:00 12/19/19 08:25 Imdur Er PO 30 mg DAILY MAURA Administration Magnesium Oxide 400 mg 12/14/19 09:00 12/19/19 08:25 Magnesium Oxide PO 400 mg BID MAURA Administration Sodium Chloride 10 ml 12/14/19 09:00 12/19/19 08:25 Flush - Normal Saline IVF 10 ml Q12HR MAURA Administration - Exam Eye: PERRL Heart: RRR, no murmur, no gallops, no rubs, normal peripheral pulses Respiratory: CTAB, no wheezes, no rales, no ronchi, normal chest expansion, no tachypnea, normal percussion Gastrointestinal: soft, non-tender, non-distended, normal bowel sounds, no palpable masses, no hepatomegaly Extremities: no cyanosis, no edema Hosp A/P (1) End stage renal disease Code(s): N18.6 - END STAGE RENAL DISEASE Status: Acute (2) Fever Code(s): R50.9 - FEVER, UNSPECIFIED Status: Acute (3) Hypertension Code(s): I10 - ESSENTIAL (PRIMARY) HYPERTENSION Status: Acute - Plan * New End stage renal disease- he is being prepared for dialysis * A-V Fistula to be placed tomorrow * Fever- will re-culture * HTN- blood pressure is stable
[2019-12-19] MEDS: Acetaminophen 325 MG TAB PO PRN ×2 (15:35→23:22)
[2019-12-20] MEDS: Acetaminophen 325 MG TAB PO PRN ×2 (04:07→13:20)
[2019-12-20] MEDS: Carvedilol 25 MG TAB PO SCH ×3 (05:04→18:07)
[2019-12-20] MEDS ORDERED: CEFAZOLIN 2 GM in Premix Bag 1 BAG IVPB SCH (06:00)
[2019-12-20] MEDS ORDERED: Vancomycin Sliding Scale 1 EACH FS SCH (06:30)
[2019-12-20] MEDS ORDERED: Vancomycin 1 GM in Premix Bag 1 BAG IVPB SCH ×2 (06:30→09:00)
[2019-12-20] MEDS ORDERED: Vancomycin HCl 500 MG in Sodium Chloride 0.9% 100 ML IVPB SCH (06:30)
[2019-12-20] MEDS ORDERED: Vancomycin HCl 250 MG in Sodium Chloride 0.9% 100 ML IVPB SCH (06:30)
[2019-12-20] MEDS ORDERED: Vancomycin HCl 750 MG in Sodium Chloride 0.9% 250 ML 250 ML IVPB SCH (06:30)
[2019-12-20] MEDS ORDERED: HOLD VANCOMYCIN FOR LEVEL >20 FS SCH (06:30)
--- NOTE | 2019-12-20 07:53 | RAD ---
Exam: Chest one view HISTORY:Cough Comparison: 12/13/2019 FINDINGS: Pacing device: Stable left-sided transvenous defibrillator. Cardiac silhouette:Stable cardiomegaly Aorta: Unremarkable Pulmonary vessels: Normal Costophrenic angles: Clear LUNGS: Patchy bilateral perihilar alveolar infiltrates Pneumothorax: None Osseous abnormalities: None IMPRESSION: Cardiomegaly. Bilateral perihilar alveolar infiltrates.
[2019-12-20] MEDS ORDERED: Ondansetron ODT 4 MG TAB PO PRN (08:04)
[2019-12-20] MEDS ORDERED: Ondansetron PF 4 MG/2 ML Vial IVP PRN (08:04)
[2019-12-20 08:36] LABS: Hemoglobin 7.6 g/dL (14.0-18.0); Mean Corpuscular HGB CONC 33.8 g/dL (32.0-36.0); Mean Corpuscular Hemoglobin 33.1 pg (27.0-31.0); Mean Corpuscular Volume 98.1 fL (78.0-98.0); Mean Platelet Volume 8.2 fL (7.4-10.4); Platelet Count 56 thou/uL (130-400); RBC Distribution Width 16.2 % (11.5-14.5); White Blood Cell (WBC) Count 12.4 thou/uL (4.8-10.8)
[2019-12-20 09:41] LABS: Band 16 % (5-11); Lymphocytes 5 % (21-51); MDiff Complete? YES; Monocytes 5 % (0-10); Neutrophil 74 % (42-75); Platelet Morphology Comment Appears Decreased; Polychromasia SLIGHT = 2-3 cells (100X) (0-2/hpf)
[2019-12-20] MEDS: Cefepime 2 GM in Sodium Chloride 0.9% 100 ML IVPB SCH ×2 (12:54→20:09)
[2019-12-20] MEDS: Isosorbide Mononitrate (ER) 30 MG TAB PO SCH (13:18)
[2019-12-20] MEDS: hydrALAZINE 25 MG TAB PO SCH ×3 (13:18→20:08)
[2019-12-20] MEDS: Magnesium Oxide 400 MG TAB PO SCH ×2 (13:19→20:08)
--- NOTE | 2019-12-20 14:15 | PRG ---
DATE OF SERVICE: 12/20/2019 Mr. Benavides is from [facility]. He had a temperature of 99 to 100 degrees intermittently for 3 weeks without cough, without GI symptoms and without myalgias, and a COVID test was obtained just prior to admission to this facility necessitating COVID precautions. dialysis initiated. Therefore, a femoral dialysis line was placed as OR wanted to preserve PPEs. He has been in the hospital for a week now due to delays in COVID testing and lab malfunction and technical difficulty. The specimen was sent to another lab. The results came back negative last week, but 24 hours before these results were revealed, the patient had another COVID test submitted because of delays. This was canceled, and as the patient's COVID negative for the initial test, precautions were lifted. He had planned placement of a hemodialysis cuffed catheter and a right arm fistula. He has a left subclavian vein pacemaker making the left arm less than ideal for dialysis access. On admission, he had a right antecubital vein IV placed in the ER. Once I initially saw him, this was immediately removed. Fortunately, there was no thrombus noted on the ultrasound vein mapping of that arm. Plan today was for right arm fistula and hemodialysis catheter. However, the patient spiked a fever and had 2/2 positive blood cultures for gram-positive bacteremia. The operation was canceled. Diet resumed. He dialyzed this morning and I personally removed his right femoral vein dialysis catheter. Nurses will try to establish a left hand IV. We should avoid IVs and blood draws in the right arm. Plan is that, tomorrow or Friday, hemodialysis cuff tunneled catheter and fistula. The patient received vancomycin and cefepime during dialysis today. If IV access could not be obtained in the left hand, then we will plan placement of left femoral vein triple-lumen catheter for IV access for the operation for the next 24 hours. Job ID: [id number]
--- NOTE | 2019-12-20 15:02 | PDOC.HOSPP ---
- Subjective Encounter Date: 12/20/19 Encounter Time: 15:00 Subjective: Mr. Benavides was seen today in follow-up of sepsis, and End stage renal disease. He does not have any complaints, but he was noted to have a high fever over night. - Objective Vital Signs & Weight: Vital Signs (12 hours) Temp Pulse Resp BP BP Pulse Ox 12/20/19 14:17 102.6 F H 12/20/19 13:12 103.0 F H 113 H 20 129/71 95 12/20/19 07:08 100.1 F H 112 H 24 H 125/69 95 12/20/19 06:35 101.9 F H 12/20/19 05:49 102.2 F H 109 H 20 95 12/20/19 05:04 101.9 F H 12/20/19 04:23 103.3 F H 118 H 20 142/82 H 95 Weight Admit Weight 149 lb 9.6 oz Weight 131 lb 4.8 oz Most Recent Monitor Data Heart Rate from ECG 85 NIBP 145/87 Respiration from ECG 18 I&O: 12/19/19 12/20/19 12/21/19 06:59 06:59 06:59 Intake Total 630 Output Total 2300 575 Balance -2300 55 Result Diagrams: 12/20/19 08:24 12/19/19 04:56 Hospitalist ROS - Medication Medications: Active Medications Generic Name Dose Route Start Last Admin Trade Name Freq PRN Reason Stop Dose Admin Acetaminophen 650 mg 12/19/19 15:19 12/20/19 13:20 Tylenol PO 650 mg Q6H PRN Administration Fever>101/(Mi/Mod/Sev) Pain Carvedilol 25 mg 12/14/19 17:00 12/20/19 05:04 Coreg PO 25 mg BID-WM MAURA Administration Hydralazine HCl 10 mg 12/13/19 20:05 12/14/19 01:58 Apresoline SLOW IVP 10 mg Q4H PRN Administration SBP Greater Than 180 Hydralazine HCl 50 mg 12/14/19 15:00 12/20/19 13:18 Apresoline PO Not Given TID MAURA Cefepime HCl 2 gm/ Sodium 100 mls @ 200 mls/hr 12/20/19 09:00 12/20/19 12:54 Chloride IVPB Not Given Q12HR MAURA Isosorbide Mononitrate 30 mg 12/14/19 09:00 12/20/19 13:18 Imdur Er PO 30 mg DAILY MAURA Administration Magnesium Oxide 400 mg 12/14/19 09:00 12/20/19 13:19 Magnesium Oxide PO 400 mg BID MAURA Administration Ondansetron HCl 4 mg 12/20/19 08:04 12/20/19 08:35 Zofran IVP 4 mg Q6H PRN Administration Nausea/Vomiting Sodium Chloride 10 ml 12/14/19 09:00 12/20/19 13:19 Flush - Normal Saline IVF 10 ml Q12HR MAURA Administration - Exam Eye: PERRL Heart: RRR, no murmur, no gallops, no rubs, normal peripheral pulses Respiratory: CTAB, no wheezes, no rales, no ronchi, normal chest expansion Gastrointestinal: soft, non-tender, non-distended, normal bowel sounds, no palpable masses, no hepatomegaly Extremities: no cyanosis, no edema Hosp A/P (1) End stage renal disease Code(s): N18.6 - END STAGE RENAL DISEASE Status: Acute (2) Fever Code(s): R50.9 - FEVER, UNSPECIFIED Status: Acute (3) Hypertension Code(s): I10 - ESSENTIAL (PRIMARY) HYPERTENSION Status: Acute - Plan * New End stage renal disease- he is being prepared for dialysis * A-V Fistula placement has been postponed * Fever, and staph bacteremia- Vancomycin has already been added, and the trialysis cather will be removed today, and cultured * Will check an Echo for rule out vegetations * HTN- blood pressure is stable
[2019-12-20] MEDS ORDERED: Ibuprofen 600 MG TAB PO PRN ×2 (15:04→15:05)
[2019-12-20] MEDS ORDERED: guaiFENesin/Codeine Phosphate 200 mg/20 mg 10 ml UD Cup PO PRN (18:38)
--- NOTE | 2019-12-20 23:15 | PRG ---
DATE OF SERVICE: 12/20/2019 SUBJECTIVE: The patient was seen and examined. He seems to be very ill looking. Noted with the following vital signs: OBJECTIVE: VITAL SIGNS: T maximum of 103.1, pulse of 91, respiratory rate of 18, O2 saturation of 96%, blood pressure 132/69. HEENT: Unremarkable. CARDIOVASCULAR SYSTEM: First and second heart sounds were heard. RESPIRATORY SYSTEM: Clear to auscultation. DIGESTIVE SYSTEM: Revealed a benign abdomen. EXTREMITIES: No peripheral edema. SKIN: No new gross rash. LABORATORY INVESTIGATION: Showed a white count of 12,400, hemoglobin of 7.6, platelet of 56,000. Chemistry showed a creatinine of 5.18 BUN of 37. Blood cultures growing significant for gram-positive cocci in clusters, presumably Staphylococcus aureus. IMPRESSION: 1. Sepsis in the context of line infection with gram-positive cocci in clusters. 2. End-stage renal disease, on hemodialysis. 3. Advanced cardiomyopathy, status post AICD. PLAN: 1. Discontinuation of right femoral catheter, which is likely the source of the infection. 2. Broad spectrum antibiotics to include vancomycin and cefepime. 3. Dialysis today with ultrafiltration as tolerated by hemodynamics. 4. Hopefully, the pacemaker will now be colonized by , therefore we will be aggressive in the treatment of this patient's line infection. 5. Further management will be dependent on the clinical course. Job ID: [id number]
[2019-12-21] MEDS: Carvedilol 25 MG TAB PO SCH ×2 (06:05→18:07)
[2019-12-21 08:26] LABS: Mean Corpuscular HGB CONC 32.6 g/dL (32.0-36.0); Mean Corpuscular Hemoglobin 33.1 pg (27.0-31.0); Mean Platelet Volume 8.4 fL (7.4-10.4); Platelet Count 54 thou/uL (130-400); RBC Distribution Width 16.1 % (11.5-14.5); Red Blood Cell (RBC) Count 2.12 mill/uL (4.70-6.10)
[2019-12-21 08:36] LABS: Anion Gap 22 mmol/L (10-20); BUN (Urea Nitrogen) 44 mg/dL (8.9-20.6); Calc. Creatinine Clearance 11 mL/min (70-130); Calcium 10.3 mg/dL (7.8-10.44); Carbon Dioxide 25 mmol/L (22-29); Chloride 97 mmol/L (98-107); Estimated GFR-MDRD 10; Glucose 103 mg/dL (70-105); Potassium 5.6 mmol/L (3.5-5.1); Sodium 138 mmol/L (136-145)
[2019-12-21 09:10] LABS: Band 18 % (5-11); Eosinophils 2 % (0-10); Lymphocytes 5 % (21-51); MDiff Complete? YES; Monocytes 9 % (0-10); Myelocyte 2 % (0-0); Neutrophil 62 % (42-75); Platelet Morphology Comment Appears Decreased; Polychromasia SLIGHT = 2-3 cells (100X) (0-2/hpf); Reactive Lymphocytes 2 % (0-10)
[2019-12-21] MEDS ORDERED: Vancomycin HCl 750 MG in Sodium Chloride 0.9% 250 ML 250 ML IVPB SCH (11:00)
[2019-12-21] MEDS ORDERED: Lidocaine 1% w/Epinephrine 1:100K 20 ML VIAL ONE (11:21)
[2019-12-21] MEDS ORDERED: Heparin 10,000 UNITS/1 ML VIAL ONE (11:21)
[2019-12-21] MEDS ORDERED: Sodium Chloride 0.9% 0 ML ONE (11:21)
[2019-12-21] MEDS ORDERED: Protamine Sulfate 50 MG/5 ML VIAL ONE (11:21)
[2019-12-21] MEDS ORDERED: Bupivacaine PF 0.5% 30 ML VIAL ONE (11:21)
[2019-12-21] MEDS ORDERED: Heparin 5,000 UNITS/ML VIAL ONE (11:21)
[2019-12-21] MEDS: hydrALAZINE 25 MG TAB PO SCH ×3 (13:23→22:17)
[2019-12-21] MEDS ORDERED: Fentanyl 100 MCG/2 ML VIAL ONE (14:43)
[2019-12-21] MEDS: Magnesium Oxide 400 MG TAB PO SCH ×2 (14:56→22:17)
[2019-12-21] MEDS: Cefepime 2 GM in Sodium Chloride 0.9% 100 ML IVPB SCH (16:37)
--- NOTE | 2019-12-21 16:43 | PRG ---
DATE OF SERVICE: 12/21/2019 Matthew Benavides is scheduled for dialysis access today. His potassium is 5.6. The patient last dialyzed yesterday morning. The patient's operation was canceled this afternoon due to lack of anesthesia services. OR crews are available. The patient is rescheduled in the morning and Nephrology has been contacted and requested to treat his hyperkalemia, potassium of 5.6 tonight, and hopefully, his dialysis access will be scheduled first thing in the morning. Job ID: [id number]
[2019-12-21] MEDS ORDERED: Dextrose 50% Abboject 50 ML SYRINGE SLOW IVP SCH (16:44)
[2019-12-21] MEDS ORDERED: Insulin Regular 300 UNITS/3 ML VIAL IVP SCH (16:45)
[2019-12-21] MEDS ORDERED: EPOETIN ALFA-EPBX (ESRD) 2,000 UNIT/ML VIAL SC SCH (17:00)
[2019-12-21] MEDS ORDERED: EPOETIN ALFA-EPBX (ESRD) 3,000 UNIT/ML VIAL SC SCH (17:00)
--- NOTE | 2019-12-21 17:21 | PDOC.HOSPP ---
- Subjective Encounter Date: 12/21/19 Encounter Time: 17:19 Subjective: Mr. Benavides was seen today in follow-up of MRSA sepsis. He does not have any complaints. - Objective Vital Signs & Weight: Vital Signs (12 hours) Temp Pulse Resp BP Pulse Ox 12/21/19 17:08 99.4 F 92 19 113/68 99 12/21/19 07:50 98 F 84 16 112/69 98 12/21/19 07:20 98 Weight Admit Weight 149 lb 9.6 oz Weight 128 lb 4.8 oz Most Recent Monitor Data Heart Rate from ECG 85 NIBP 145/87 Respiration from ECG 18 I&O: 12/20/19 12/21/19 12/22/19 06:59 06:59 06:59 Intake Total 630 100 Output Total 575 150 Balance 55 -50 Result Diagrams: 12/21/19 08:05 12/21/19 08:05 Hospitalist ROS - Medication Medications: Active Medications Generic Name Dose Route Start Last Admin Trade Name Freq PRN Reason Stop Dose Admin Acetaminophen 650 mg 12/19/19 15:19 12/20/19 13:20 Tylenol PO 650 mg Q6H PRN Administration Fever>101/(Mi/Mod/Sev) Pain Carvedilol 25 mg 12/14/19 17:00 12/21/19 06:05 Coreg PO 25 mg BID-WM MAURA Administration Guaifenesin/Codeine Phosphate 10 ml 12/20/19 18:38 12/20/19 19:13 Robitussin Ac PO 10 ml Q6H PRN Administration Cough Hydralazine HCl 10 mg 12/13/19 20:05 12/14/19 01:58 Apresoline SLOW IVP 10 mg Q4H PRN Administration SBP Greater Than 180 Hydralazine HCl 50 mg 12/14/19 15:00 12/21/19 13:23 Apresoline PO Not Given TID AMURA Isosorbide Mononitrate 30 mg 12/14/19 09:00 12/20/19 13:18 Imdur Er PO 30 mg DAILY MAURA Administration Magnesium Oxide 400 mg 12/14/19 09:00 12/21/19 14:56 Magnesium Oxide PO Not Given BID MAURA Ondansetron HCl 4 mg 12/20/19 08:04 12/20/19 08:35 Zofran IVP 4 mg Q6H PRN Administration Nausea/Vomiting Sodium Chloride 10 ml 12/14/19 09:00 12/21/19 14:56 Flush - Normal Saline IVF Not Given Q12HR MAURA - Exam Eye: PERRL Heart: RRR, no murmur, no gallops, no rubs, normal peripheral pulses Respiratory: CTAB, no wheezes, no rales, no ronchi, normal chest expansion, no tachypnea, normal percussion Gastrointestinal: soft, non-tender, non-distended, normal bowel sounds, no palpable masses, no hepatomegaly Extremities: no cyanosis, no edema Hosp A/P (1) End stage renal disease Code(s): N18.6 - END STAGE RENAL DISEASE Status: Acute (2) Fever Code(s): R50.9 - FEVER, UNSPECIFIED Status: Acute (3) Hypertension Code(s): I10 - ESSENTIAL (PRIMARY) HYPERTENSION Status: Acute - Plan * New End stage renal disease- he is being prepared for dialysis * A-V Fistula placement today * Anemia- will transfuse one unit * MRSA sepsis- continue Vancomycin * Will check an Echo for rule out vegetations * HTN- blood pressure is stable
--- NOTE | 2019-12-21 17:25 | PRG ---
DATE OF SERVICE: 12/21/2019 The patient noted with the following vital signs. OBJECTIVE: VITAL SIGNS: Afebrile, temperature 98, pulse 84, respiratory rate of 16, O2 saturation of 98%, blood pressure 124/69. HEENT: Unremarkable. CARDIOVASCULAR SYSTEM: First and second heart sounds were heard. RESPIRATORY SYSTEM: Clear to auscultation. DIGESTIVE SYSTEM: Revealed a benign abdomen. Positive bowel sounds. EXTREMITIES: No peripheral edema. SKIN: No new gross rash. LYMPHATIC: No peripheral lymphadenopathy. LABORATORY INVESTIGATION: Showed a white count of 7000, hemoglobin of 7, platelet of 54,000. Chemistry showed a creatinine of 7.4, BUN of 44, potassium of 5.6. IMPRESSION: 1. End-stage renal disease, hemodialysis dependent. 2. Mild hyperkalemia. 3. Anemia, partly iatrogenic and partly anemia of chronic kidney disease. 4. Advanced cardiomyopathy. PLAN: 1. The patient could not secure tunneled dialysis catheter today to continue with hemodialysis, but hopefully would secure the tunneled dialysis catheter tomorrow after which the patient will undergo hemodialysis right away. 2. Medical management of the hyperkalemia with insulin, dextrose, and Kayexalate and a repeat chemistry in the morning. 3. We will likely type and crossmatch and transfuse this patient with about 2 units of blood during dialysis tomorrow. 4. We will continue with erythropoiesis stimulating agents. 5. Outpatient dialysis placement work in progress and corrections caseworker on the case. 6. Further management to be dependent on the clinical course. Job ID: [id number]
[2019-12-21] MEDS: Isosorbide Mononitrate (ER) 30 MG TAB PO SCH (18:07)
[2019-12-21] MEDS: Acetaminophen 325 MG TAB PO PRN (23:38)
[2019-12-22] MEDS: Cefepime 2 GM in Sodium Chloride 0.9% 100 ML IVPB SCH ×2 (05:00→16:44)
[2019-12-22] MEDS: Carvedilol 25 MG TAB PO SCH ×2 (05:00→16:44)
[2019-12-22] MEDS ORDERED: Fentanyl 100 MCG/2 ML VIAL ONE (06:39)
[2019-12-22] MEDS ORDERED: Lidocaine 2% Jelly 5 ML TUBE ONE (06:39)
[2019-12-22] MEDS ORDERED: Heparin 10,000 UNITS/1 ML VIAL ONE (06:49)
[2019-12-22] MEDS ORDERED: Protamine Sulfate 50 MG/5 ML VIAL ONE (06:49)
[2019-12-22] MEDS ORDERED: Bupivacaine PF 0.5% 30 ML VIAL ONE (06:49)
[2019-12-22] MEDS ORDERED: Lidocaine 2% w/Epinephrine 1:200K 20 ML VIAL ONE (06:49)
[2019-12-22] MEDS ORDERED: Ioversol 68 % 50 ML VIAL ONE (06:49)
[2019-12-22] MEDS ORDERED: Sodium Chloride 0.9% 20 ML ONE (06:49)
[2019-12-22] MEDS ORDERED: Heparin 5,000 UNITS/ML VIAL ONE (06:49)
[2019-12-22] MEDS ORDERED: Lidocaine 1% w/Epinephrine 1:100K 20 ML VIAL ONE (07:01)
[2019-12-22 08:02] VITALS: BMI 17.3
[2019-12-22] MEDS: Isosorbide Mononitrate (ER) 30 MG TAB PO SCH (08:08)
[2019-12-22] MEDS: Magnesium Oxide 400 MG TAB PO SCH ×2 (08:08→20:32)
[2019-12-22] MEDS: hydrALAZINE 25 MG TAB PO SCH ×3 (08:08→20:32)
[2019-12-22] MEDS ORDERED: Promethazine HCl 25 MG/ML VIAL IM PRN (10:13)
[2019-12-22] MEDS ORDERED: Promethazine HCl 25 MG/ML VIAL SLOW IVP PRN (10:13)
[2019-12-22] MEDS ORDERED: Ondansetron HCl/PF 4 MG/2 ML Vial IVP PRN (10:13)
[2019-12-22] MEDS ORDERED: Acetaminophen 500 MG TAB PO PRN (10:33)
[2019-12-22] MEDS ORDERED: traMADol HCl 50 MG TAB PO PRN (10:33)
--- NOTE | 2019-12-22 11:18 | PDOC.HOSPP ---
- Subjective Encounter Date: 12/22/19 Encounter Time: 11:17 Subjective: Mr. Benavides was seen today in follow-up of MRSA sepsis. He does not have any complaints. - Objective Vital Signs & Weight: Vital Signs (12 hours) Temp Pulse Resp BP BP Pulse Ox 12/22/19 10:57 98 12/22/19 10:56 99.6 F 77 18 104/69 93 L 12/22/19 03:20 98.4 F 90 18 118/79 95 12/22/19 00:30 99.6 F 12/22/19 00:00 95 12/21/19 23:25 101.2 F H 99 18 131/80 95 Weight Admit Weight 149 lb 9.6 oz Weight 128 lb Most Recent Monitor Data Heart Rate from ECG 85 NIBP 145/87 Respiration from ECG 18 I&O: 12/21/19 12/22/19 12/23/19 06:59 06:59 06:59 Intake Total 100 350 Output Total 150 Balance -50 350 Result Diagrams: 12/21/19 08:05 12/21/19 08:05 Hospitalist ROS - Medication Medications: Active Medications Generic Name Dose Route Start Last Admin Trade Name Freq PRN Reason Stop Dose Admin Carvedilol 25 mg 12/14/19 17:00 12/22/19 05:00 Coreg PO 25 mg BID-WM MAURA Administration Guaifenesin/Codeine Phosphate 10 ml 12/20/19 18:38 12/20/19 19:13 Robitussin Ac PO 10 ml Q6H PRN Administration Cough Hydralazine HCl 10 mg 12/13/19 20:05 12/14/19 01:58 Apresoline SLOW IVP 10 mg Q4H PRN Administration SBP Greater Than 180 Cefepime HCl 2 gm/ Sodium 100 mls @ 200 mls/hr 12/22/19 04:00 12/22/19 05:00 Chloride IVPB 100 mls 0400,1600 MAURA Administration Isosorbide Mononitrate 30 mg 12/14/19 09:00 12/22/19 08:08 Imdur Er PO Not Given DAILY MAURA Magnesium Oxide 400 mg 12/14/19 09:00 12/22/19 08:08 Magnesium Oxide PO Not Given BID MAURA Ondansetron HCl 4 mg 12/20/19 08:04 12/20/19 08:35 Zofran IVP 4 mg Q6H PRN Administration Nausea/Vomiting Sodium Chloride 10 ml 12/14/19 09:00 12/22/19 08:08 Flush - Normal Saline IVF Not Given Q12HR MAURA - Exam Eye: PERRL, anicteric sclera Heart: RRR, no murmur, no gallops, no rubs, normal peripheral pulses Respiratory: CTAB, no wheezes, no rales, no ronchi, normal chest expansion, no tachypnea Gastrointestinal: soft, non-tender, non-distended, normal bowel sounds, no palpable masses Extremities: no cyanosis, no edema Hosp A/P (1) End stage renal disease Code(s): N18.6 - END STAGE RENAL DISEASE Status: Acute (2) Fever Code(s): R50.9 - FEVER, UNSPECIFIED Status: Acute (3) Hypertension Code(s): I10 - ESSENTIAL (PRIMARY) HYPERTENSION Status: Acute - Plan * New End stage renal disease- he is being prepared for dialysis * He had the AV fistula placed * MRSA sepsis- continue Vancomycin * Will check an Echo for rule out vegetations * HTN- blood pressure is stable * Hope with Vancomycin with dialysis once Echo done
[2019-12-22] MEDS ORDERED: Heparin 10,000 UNITS/ 10 ML VIAL ONE (11:19)
--- NOTE | 2019-12-22 11:29 | OP ---
DATE OF PROCEDURE: 12/22/2019 PREOPERATIVE DIAGNOSES: End-stage renal disease, left subclavian vein pacemaker. POSTOPERATIVE DIAGNOSES: End-stage renal disease, left subclavian vein pacemaker. PROCEDURES PERFORMED: Right internal jugular cuffed tunneled hemodialysis catheter, ultrasound and fluoroscopy used. Right arm primary arteriovenous fistula, and perforating branch antecubital vein to the proximal radial artery outflow cephalic vein only. ANESTHESIA: General, local 0.5% Marcaine 30 mL mixed with 1% Xylocaine with epinephrine 20 mL. DESCRIPTION OF PROCEDURE: The patient was taken to the operating room, where under general anesthesia, neck and chest, right upper extremity, axilla and chest wall prepared with ChloraPrep and draped in routine fashion. Local anesthetic was infiltrated in the skin and subcutaneous tissue about the operative sites. Trocar catheter cannulated the right internal jugular vein and J-wire threaded, trocar catheter removed. Ultrasound used for this. Skin site was enlarged sharply. Stab incision was made over the right chest. Using the tunneling device, the pre-curved [employer] cuffed tunneled hemodialysis catheter tunneled between the 2 incisions, placed the fabric cuff beneath the skin exit site securing the catheter with 3-0 nylon suture. Small and medium size dilators were placed over the J-wire and the internal jugular vein removed. Dilator and Peel-Away sheath placed over the J-wire into the superior vena cava and J-wire and dilator removed. Catheter placed with the Peel-Away sheath. Peel-Away sheath removed. Platysma was approximated with 4-0 Monocryl, skin with subdermal 4-0 Monocryl and Banquete glue applied. Each port aspirated blood, flushed with heparinized saline solution, 1000 units of heparin per mL, indicating volume of the port. Final fluoroscopic images revealed good line and placement. Incision was made in the proximal volar forearm, carried down through skin and subcutaneous tissue below the antecubital fossa longitudinally identifying the antecubital vein and perforating branch dissected free, branch points divided between clips and spatulated, interrogated with coronary dilators from 2 mm to 4 mm coronary dilator passing throughout the vein into the cephalic vein upper arm without obstruction. It was flushed with heparinized saline solution. The patient was given 6000 units of heparin intravenously. Brachial, ulnar and proximal radial artery dissected free. Nerves kept free of harm. Brachial, ulnar, and proximal radial artery were clamped with atraumatic vascular clamps. Longitudinal arteriotomy was made sharply in the proximal radial artery with a 3 cm arteriotomy and end vein to side proximal radial artery anastomosis was created with continuous suture of 6-0 Prolene. After completing the anastomosis, vascular clamps were released. Noted good flow in the cephalic vein fistula upper arm with good Doppler signal. Good hemostasis noted. The patient was given 25 mg of protamine intravenously by Anesthesia. Subcutaneous tissue was approximated with 3-0 Monocryl, skin with subdermal 4-0 Monocryl and Banquete glue applied. Job ID: [id number]
--- NOTE | 2019-12-22 11:37 | RAD ---
CHEST 1 VIEW: Date: 12/22/2019 HISTORY: Cough. COMPARISON: 12/20/2019. FINDINGS: Left ICD. Right dual lumen venous access catheter. Diffuse cardiomegaly. Bilateral vascular congestion without confluent pneumonia or overt edema. IMPRESSION: Cardiomegaly with bilateral vascular congestion, with little change from prior study, with somewhat l ess inspiratory effort. No significant new process. No pneumothorax or pleural effusion following rig ht venous access catheter placement. POS: [facility]
--- NOTE | 2019-12-22 11:39 | PRG ---
DATE OF SERVICE: 12/22/2019 SUBJECTIVE: The patient noted with the following vital signs. OBJECTIVE: VITAL SIGNS: Afebrile, temperature 98.6, pulse 77, respiratory rate of 18, O2 saturation of 98%, blood pressure 104/69. HEENT: Unremarkable. CARDIOVASCULAR: First and second heart sounds were heard. RESPIRATORY SYSTEM: Clear to auscultation. DIGESTIVE SYSTEM: Revealed a benign abdomen. EXTREMITIES: No peripheral edema. SKIN: No new gross rash. LYMPHATICS: No peripheral lymphadenopathy. IMPRESSION: 1. End-stage renal disease, on hemodialysis. 2. Gram-positive bacteremia/line infection. 3. Anemia. 4. Cardiomyopathy. PLAN: 1. The patient has already secured long-term access, therefore we will continue hemodialysis today. The patient now to be on a Friday, Friday, Friday schedule. 2. Erythropoiesis stimulating agent. 3. Transfuse remaining 1 unit of blood. 4. Re-evaluate the labs prior to initiating dialysis today to evaluate the patient's renal function, blood, and CBC. 5. Planning complex case manager helping out with regard to outpatient dialysis placement. Job ID: [id number]
[2019-12-22] MEDS ORDERED: Ondansetron PF 4 MG/2 ML Vial ONE (12:08)
[2019-12-22] MEDS ORDERED: Rocuronium Bromide 10 MG/ML (10ML VIAL) ONE (12:08)
[2019-12-22] MEDS ORDERED: Dexamethasone 20 MG/5 ML VIAL ONE (12:08)
[2019-12-22] MEDS ORDERED: Glycopyrrolate 0.2 MG/ML 5 ML SYRINGE ONE (12:08)
[2019-12-22] MEDS ORDERED: PHENYLEPHRINE-NS 100 MCG/ML 10 ML SYRINGE ONE (12:08)
[2019-12-22] MEDS ORDERED: PROPOFOL 200 MG/20 ML VIAL ONE (12:08)
[2019-12-22 12:57] LABS: Vancomycin, Random 18.4 ug/mL (See Comment)
[2019-12-22 13:02] LABS: Albumin 3.9 g/dL (3.5-5.0); Anion Gap 21 mmol/L (10-20); BUN (Urea Nitrogen) 68 mg/dL (8.9-20.6); BUN/Creatinine Ratio 6.83; Calc. Creatinine Clearance 8 mL/min (70-130); Calcium 9.9 mg/dL (7.8-10.44); Carbon Dioxide 25 mmol/L (22-29); Chloride 97 mmol/L (98-107); Estimated GFR-MDRD 7; Glucose 106 mg/dL (70-105); Phosphorus 7.5 mg/dL (2.3-4.7); Potassium 6.1 mmol/L (3.5-5.1); Sodium 137 mmol/L (136-145)
[2019-12-22 13:09] LABS: Band 20 % (5-11); Lymphocytes 20 % (21-51); MDiff Complete? YES; Mean Corpuscular HGB CONC 33.4 g/dL (32.0-36.0); Mean Corpuscular Hemoglobin 33.3 pg (27.0-31.0); Mean Corpuscular Volume 99.8 fL (78.0-98.0); Mean Platelet Volume 9.3 fL (7.4-10.4); Monocytes 4 % (0-10); Neutrophil 54 % (42-75); Platelet Count 70 thou/uL (130-400); Platelet Morphology Comment Appears Decreased; RBC Distribution Width 16.8 % (11.5-14.5); RBC Morphology Normal; Reactive Lymphocytes 2 % (0-10); Red Blood Cell (RBC) Count 2.11 mill/uL (4.70-6.10); White Blood Cell (WBC) Count 7.6 thou/uL (4.8-10.8)
[2019-12-22] MEDS ORDERED: Epoetin (ESRD) 20,000 UNITS/ML IVP SCH (16:56)
[2019-12-23] MEDS: Cefepime 2 GM in Sodium Chloride 0.9% 100 ML IVPB SCH ×2 (03:47→15:57)
[2019-12-23 09:00] LABS: Anion Gap 20 mmol/L (10-20); BUN (Urea Nitrogen) 52 mg/dL (8.9-20.6); Calc. Creatinine Clearance 11 mL/min (70-130); Calcium 9.4 mg/dL (7.8-10.44); Carbon Dioxide 24 mmol/L (22-29); Chloride 96 mmol/L (98-107); Estimated GFR-MDRD 10; Glucose 114 mg/dL (70-105); Potassium 5.2 mmol/L (3.5-5.1); Sodium 135 mmol/L (136-145)
[2019-12-23] MEDS: Isosorbide Mononitrate (ER) 30 MG TAB PO SCH (09:11)
[2019-12-23] MEDS: Magnesium Oxide 400 MG TAB PO SCH ×2 (09:11→21:44)
[2019-12-23] MEDS: Carvedilol 25 MG TAB PO SCH ×2 (09:11→19:07)
[2019-12-23] MEDS: hydrALAZINE 25 MG TAB PO SCH ×3 (09:11→21:44)
[2019-12-23 09:43] LABS: Band 14 % (5-11); Hemoglobin 8.6 g/dL (14.0-18.0); Lymphocytes 6 % (21-51); MDiff Complete? YES; Mean Corpuscular Hemoglobin 32.3 pg (27.0-31.0); Mean Corpuscular Volume 97.9 fL (78.0-98.0); Mean Platelet Volume 8.7 fL (7.4-10.4); Monocytes 12 % (0-10); Neutrophil 68 % (42-75); Nucleated RBC 2 % (0); Platelet Count 84 thou/uL (130-400); Platelet Morphology Comment Appears Decreased; Polychromasia SLIGHT = 2-3 cells (100X) (0-2/hpf); RBC Distribution Width 16.2 % (11.5-14.5); Red Blood Cell (RBC) Count 2.68 mill/uL (4.70-6.10); White Blood Cell (WBC) Count 8.6 thou/uL (4.8-10.8)
--- NOTE | 2019-12-23 14:48 | PDOC.HOSPP ---
- Subjective Encounter Date: 12/23/19 Encounter Time: 14:45 Subjective: Mr. Benavides was seen today in follow-up of MRSA sepsis and new ESRD. He does not have any complaints. - Objective Vital Signs & Weight: Vital Signs (12 hours) Temp Pulse Resp BP BP Pulse Ox 12/23/19 11:10 98.5 F 82 16 121/77 98 12/23/19 07:25 98.6 F 76 17 129/92 H 97 12/23/19 03:28 98.6 F 79 16 127/89 98 Weight Admit Weight 149 lb 9.6 oz Weight 128 lb Most Recent Monitor Data Heart Rate from ECG 85 NIBP 145/87 Respiration from ECG 18 I&O: 12/22/19 12/23/19 12/24/19 06:59 06:59 06:59 Intake Total 350 500 Balance 350 500 Result Diagrams: 12/23/19 08:21 12/23/19 08:21 Hospitalist ROS - Medication Medications: Active Medications Generic Name Dose Route Start Last Admin Trade Name Freq PRN Reason Stop Dose Admin Acetaminophen 1,000 mg 12/22/19 10:33 12/22/19 16:44 Tylenol PO 1,000 mg Q6H PRN Administration Moderate to Severe Pain (6-10) Carvedilol 25 mg 12/14/19 17:00 12/23/19 09:11 Coreg PO 25 mg BID-WM MAURA Administration Guaifenesin/Codeine Phosphate 10 ml 12/20/19 18:38 12/20/19 19:13 Robitussin Ac PO 10 ml Q6H PRN Administration Cough Hydralazine HCl 10 mg 12/13/19 20:05 12/14/19 01:58 Apresoline SLOW IVP 10 mg Q4H PRN Administration SBP Greater Than 180 Hydralazine HCl 25 mg 12/22/19 15:00 12/23/19 09:11 Apresoline PO 25 mg TID MAURA Administration Cefepime HCl 2 gm/ Sodium 100 mls @ 200 mls/hr 12/22/19 04:00 12/23/19 03:47 Chloride IVPB 100 mls 0400,1600 MAURA Administration Isosorbide Mononitrate 30 mg 12/14/19 09:00 12/23/19 09:11 Imdur Er PO 30 mg DAILY MAURA Administration Magnesium Oxide 400 mg 12/14/19 09:00 04/16/20 09:11 Magnesium Oxide PO 400 mg BID MAURA Administration Ondansetron HCl 4 mg 12/20/19 08:04 12/20/19 08:35 Zofran IVP 4 mg Q6H PRN Administration Nausea/Vomiting Sodium Chloride 10 ml 12/14/19 09:00 12/23/19 10:30 Flush - Normal Saline IVF Not Given Q12HR MAURA - Exam Eye: PERRL Heart: RRR, no murmur, no gallops, no rubs, normal peripheral pulses Respiratory: CTAB, no wheezes, no rales, no ronchi, normal chest expansion, no tachypnea Gastrointestinal: soft, non-tender, non-distended, normal bowel sounds, no palpable masses, no hepatomegaly Extremities: no cyanosis Hosp A/P (1) End stage renal disease Code(s): N18.6 - END STAGE RENAL DISEASE Status: Acute (2) Fever Code(s): R50.9 - FEVER, UNSPECIFIED Status: Acute (3) Hypertension Code(s): I10 - ESSENTIAL (PRIMARY) HYPERTENSION Status: Acute - Plan * New End stage renal disease- the dialysis chair at [facility] has been arranged * He had the AV fistula placed * MRSA sepsis- continue Vancomycin * Await Echo results to rule out vegetations * Once this is back, cam plan on discharge back to his nursing facility on the appropriate length of time on Vancomycin * HTN- blood pressure is stable
--- NOTE | 2019-12-23 16:57 | PRG ---
DATE OF SERVICE: 12/23/2019 SUBJECTIVE: The patient is seen and examined with no new complaint. Noted with the following vital signs. OBJECTIVE: VITAL SIGNS: Afebrile, temperature 98.8, pulse 78, respiratory rate of 18, O2 saturation of 96%, blood pressure of 114/75. HEENT: Unremarkable. CARDIOVASCULAR: First and second heart sounds were heard. RESPIRATORY: Clear to auscultation. DIGESTIVE: Revealed a benign abdomen with positive bowel sounds. EXTREMITIES: No peripheral edema. SKIN: No new gross rash. LYMPHATICS: No peripheral lymphadenopathy. LABORATORY INVESTIGATION: Showed white count down to 8600, hemoglobin 8.6, platelet of 84,000. Chemistry showed potassium of 5.2, BUN of 52, creatinine of 7.4. IMPRESSION: 1. End-stage renal disease, on hemodialysis Friday, Friday, and Friday schedule. 2. Mild hyperkalemia. 3. Anemia. 4. Advanced cardiomyopathy. PLAN: 1. The patient to be dialyzed tomorrow in current schedule of Friday, Friday, Friday. 2. Continue erythropoiesis stimulating agent. 3. Further management will be dependent on the clinical course. Job ID: [id number]
--- NOTE | 2019-12-23 17:37 | PRG ---
DATE OF SERVICE: 12/23/2019 Matthew Benavides doing well today. He has good right hand function, has good thrill and bruit in the right arm fistula. Hemodialysis catheter is functioning well. 98 degrees, 78, 114/75. At this point, I will see him as needed. I will see him as an outpatient in 3 to 4 weeks. I think his fistula will mature quickly. Please call if necessary. Job ID: [id number]
[2019-12-24] MEDS: Cefepime 2 GM in Sodium Chloride 0.9% 100 ML IVPB SCH (04:17)
[2019-12-24] MEDS: Carvedilol 25 MG TAB PO SCH ×2 (08:00→19:48)
[2019-12-24 08:41] LABS: #Eosinphils 0.2 thou/uL (0.0-0.7); #Lymphocytes 0.8 thou/uL (1.20-3.40); #Monocytes 1.1 thou/uL (0.11-0.59); #Neutrophils 6.3 thou/uL (1.40-6.50); %Basophils 0.1 % (0.0-1.0); %Eosinophils 2.4 % (0.0-10.0); %Lymphocytes 9.4 % (21.0-51.0); %Monocytes 13.2 % (0.0-10.0); Mean Corpuscular HGB CONC 34.4 g/dL (32.0-36.0); Mean Corpuscular Hemoglobin 33.4 pg (27.0-31.0); Mean Corpuscular Volume 96.9 fL (78.0-98.0); Platelet Count 99 thou/uL (130-400); RBC Distribution Width 15.7 % (11.5-14.5); Red Blood Cell (RBC) Count 2.39 mill/uL (4.70-6.10); White Blood Cell (WBC) Count 8.4 thou/uL (4.8-10.8)
[2019-12-24] MEDS: hydrALAZINE 25 MG TAB PO SCH ×3 (09:00→21:00)
[2019-12-24 09:01] LABS: Vancomycin, Random 12.3 ug/mL (See Comment)
[2019-12-24 09:03] LABS: Anion Gap 18 mmol/L (10-20); BUN (Urea Nitrogen) 70 mg/dL (8.9-20.6); Calc. Creatinine Clearance 9 mL/min (70-130); Calcium 9.2 mg/dL (7.8-10.44); Carbon Dioxide 26 mmol/L (22-29); Chloride 96 mmol/L (98-107); Estimated GFR-MDRD 8; Glucose 116 mg/dL (70-105); Potassium 4.2 mmol/L (3.5-5.1); Sodium 136 mmol/L (136-145)
--- NOTE | 2019-12-24 10:47 | PRG ---
DATE OF SERVICE: 12/24/2019 SUBJECTIVE: A 44-year-old male presented to the hospital on 13 December 2019 with low-grade fever. He was COVID rule out. His workup was consistent with acute kidney injury, requiring hemodialysis. Later he started having fever with blood cultures were positive for Staph bacteremia He is tolerating hemodialysis at this time. He denies any chest pain, shortness of breath, palpitations, or cough. REVIEW OF SYSTEMS: All other review of systems reviewed and were found negative. CURRENT MEDICATIONS: Reviewed. The patient is on, 1. Cefepime. 2. Vancomycin. 3. Carvedilol. 4. Epogen. 5. Hydralazine. 6. Imdur. 7. Magnesium oxide. PHYSICAL EXAMINATION: VITAL SIGNS: Temperature 99, pulse rate of 81, respiration of 18, blood pressure of 126/79, O2 saturation 97% on room air. GENERAL: A 44-year-old male, in no apparent distress, undergoing hemodialysis. LUNGS: Clear to auscultation bilaterally. No wheezing, rales, or rhonchi. HEART: S1, S2 present, regular. ABDOMEN: Soft, nontender. Bowel sounds present. EXTREMITIES: No edema or calf tenderness. NEUROLOGY: Grossly nonfocal. PERIPHERAL VASCULAR: Dialysis catheter noted in the right upper chest. No significant swelling or erythema at the dialysis access in the right arm. LABORATORY STUDIES: CBC showed WBC 8.4, hemoglobin 8, hematocrit 23.1, platelet of 99. Chemistry showed sodium 136, potassium 4.2, chloride 96, bicarb 26. BUN 7.0, creatinine 8.85. Blood cultures were positive for Staphylococcus. Femoral catheter culture showed Staph hominis greater than 15 colony forming units. IMAGING STUDIES: Chest x-ray two days ago was negative for infiltrate. CARDIOVASCULAR STUDIES: Echocardiogram showed ejection fraction of 35% range with [id number] mitral regurgitation, moderate tricuspid regurgitation. IMPRESSION: 1. Acute kidney injury on chronic kidney disease stage 5/end-stage renal disease. 2. Severe sepsis with methicillin-resistant Staphylococcus aureus due to infected dialysis catheter. 3. Tobacco dependence. 4. Cardiomyopathy with ejection fraction 35% range with NSVT s/p AICD 5. Hyperkalemia/hyponatremia, improved. 6. Type 2 myocardial infarction, present on admission. 7. Chronic thrombocytopenia. 8. Anemia secondary to renal insufficiency. PLAN: The patient is currently monitored on the Telemetry unit. We will continue hemodialysis per Nephrology. We will continue beta-blockers and isosorbide mononitrate. Continue antibiotics. Consult Infectious Disease for antibiotic recommendation for discharge. We will also consult Cardiology. Repeat labs in a.m. Await final cultures. Continue other medications. The patient understands the above plan of care. Job ID: [id number] MTDD
[2019-12-24] MEDS: Isosorbide Mononitrate (ER) 30 MG TAB PO SCH (14:16)
[2019-12-24] MEDS: Magnesium Oxide 400 MG TAB PO SCH ×2 (14:16→21:00)
--- NOTE | 2019-12-24 14:55 | PRG ---
DATE OF SERVICE: 12/24/2019 SUBJECTIVE: The patient noted with the following vital signs. OBJECTIVE: VITAL SIGNS: Afebrile, temperature 98.6, pulse 78, respiratory rate of 18, O2 saturation 96%, and blood pressure 133/80. HEENT: Unremarkable. CARDIOVASCULAR SYSTEM: First and second heart sounds were heard. RESPIRATORY SYSTEM: Clear to auscultation. DIGESTIVE SYSTEM: Revealed a benign abdomen with positive bowel sounds. EXTREMITIES: No peripheral edema. SKIN: No new gross rash. LYMPHATICS: No peripheral lymphadenopathy. IMPRESSION: 1. End-stage renal disease, on hemodialysis. 2. Anemia. 3. Advanced cardiomyopathy. 4. Line infection on treatment. PLAN: 1. The patient to continue with Friday, Friday, and Friday schedule dialysis. 2. Erythropoiesis stimulating agent to address the anemia of chronic kidney disease. 3. patient will be good for discharge from the Renal standpoint. However, the to the antibiotic agent duration and the dose needs to be streamlined prior to discharge. Job ID: [id number]
--- NOTE | 2019-12-24 18:51 | CON ---
DATE OF CONSULTATION: 12/24/2019 REASON FOR CONSULTATION: Bacteremia. HISTORY OF PRESENT ILLNESS: A 44-year-old with history of renal disease of unclear etiology and previous pacemaker and an AICD, who was admitted presumably for establishment of hemodialysis. He was evaluated at the emergency room on 12/12. At that time, he had a documented fever of up to 100.4 and had some abdominal swelling. No respiratory symptoms. No chest pain. No diarrhea. No headaches. No visual symptoms. No dental pain or back pain. No joint symptoms. Other findings included a white cell count of 9.5, hemoglobin 7.7, MCV 108, platelets 229, 65% neutrophils, and 9% bands. Sodium 149, creatinine 7.43, and carbon dioxide 21. Liver profile normal. Albumin 4.6. Urinalysis was normal. The patient had hepatitis C negative, hepatitis B antibody positive, core antibody, but negative surface antibody. COVID-19 was negative. Two sets of blood cultures positive for MRSA, obtained on 12/18. Since admission, the patient had been afebrile up until 12/17. In terms of procedures, the patient had on 12/12 a temporary access for hemodialysis in the right groin. This has been removed. Currently, Mr. Benavides does not establish eye contact, does follow commands. His ability to provide information is somewhat limited. He mostly answers yes and no. Ten-point review of systems is as above. Now, he has tenderness at the sites of the most recent surgical interventions with placement of an AV fistula in the right upper extremity and a tunneled dialysis catheter in the right neck. PAST MEDICAL HISTORY: Includes: 1. Hypertension. 2. Some form of cardiomyopathy with prior AICD. 3. Lung disease. 4. Liver cirrhosis of uncertain etiology. SOCIAL HISTORY: Current smoker. ALLERGIES: NONE. CURRENT MEDICATIONS: 1. DuoNeb. 2. Coreg. 3. Cefepime. 4. Retacrit. 5. Apresoline. 6. Corlanor. 7. Vancomycin. 8. Sliding scale. PHYSICAL EXAMINATION: VITAL SIGNS: Temperature has resolved and the last elevation was 3 days ago. BP 130/80, pulse 78, respirations 18, and O2 saturation 96. SKIN: The patient has the site where the AV fistula was placed in the right upper extremity and the tunneled catheter in the right IJ position. Those sites appear with the usual postoperative features. He does have tenderness at the AV fistula site. A little bit of bruising as well. He still has urinary output. No lymphadenopathy. HEENT: Ocular movements conjugate. Conjunctivae normal. Oral cavity with numerous teeth in place with some decay. No thrush. Tenderness, right side of the neck. LUNGS: Symmetric air entry without crackles or wheezing. BACK: No back tenderness. HEART: S1 and S2 with a soft aortic murmur. ABDOMEN: Soft, not distended or tender. No ascites. No bladder distention. EXTREMITIES: No joint inflammatory activity. No edema. Pulses 1+ in dorsalis pedis. NEUROLOGIC: He is awake. He does not establish eye contact. He does follow commands after some insistence. He is unable to provide full sentences after questions and has very poor recall. He is somewhat disoriented. LABORATORY DATA: White cell count is 8.6, hemoglobin 8.6, and platelets 84,000. The platelets were normal and he became thrombocytopenic after admission. His white cell count jumped to 12.4 right around the time when he was bacteremic. Creatinine 6.74. TIBC is 253 and ferritin 352. Liver profile normal. Albumin 4.6. IMAGING STUDIES: He had an echocardiogram, EF 30%, moderate tricuspid regurg. Chest x-ray with cardiomegaly, congestion. No focal infiltrates. ASSESSMENT: 1. Cardiomyopathy of uncertain etiology with automatic implantable cardioverter-defibrillator. 2. Hypertension. 3. End-stage renal disease of uncertain etiology, possibly secondary to chronic glomerulonephritis, but not sure. 4. Chronic smoking. 5. Some element of cognitive dysfunction, this could be congenital or dementia like process. 6. Inflammatory process, which developed after admission to the hospital. It is a 1 week into admission, associated with fever and methicillin-resistant Staphylococcus aureus bacteremia, likely due to colonization of a Trialysis catheter in the right groin. This has already been removed. The sequence of events is quite consistent with this hypothesis. There is no evidence of other sites of involvement at this time and I would recommend a 4-week course of IV vancomycin, sliding scale at dialysis. The end date of therapy would be sometime in mid January approximately. He is at risk for colonization of the automatic implantable cardioverter-defibrillator leads, and if there is recurrence of fever, he should have repeat blood cultures submitted as well before discharge planning. Monitoring for spinal infection, which typically will present with progressively worsening pain in the lower or other or thoracic spine or cervical spine, will have to be implemented in the ensuing months. Job ID: [id number]
--- NOTE | 2019-12-24 19:09 | CON ---
DATE OF CONSULTATION: HISTORY OF PRESENT ILLNESS: The patient is an unfortunate 44-year-old gentleman who presented with altered mental status and fever. The patient has a history of nonischemic cardiomyopathy,and is followed by Dr. Lay. He has had placement of an AICD. The patient presented with altered mental status. He has been hospitalized and treated for sepsis. The patient denies having any fevers or chills. The patient denies having any chest discomfort. PAST MEDICAL HISTORY: 1. Cardiomyopathy. 2. Chronic renal failure. 3. Diabetes mellitus. 4. Hypertension. PAST SURGICAL HISTORY: None. SOCIAL HISTORY: Former smoker. FAMILY HISTORY: Positive for family history of coronary artery disease. MEDICATIONS ON ADMISSION: See nursing list. LABORATORY RESULTS: White blood cell count is 8.4, hemoglobin 8.0, hematocrit 23.1, and platelets are 99. Sodium 136, potassium 4.2, chloride 96, bicarb was 26, BUN 70, and creatinine is 8.8. Blood culture revealed MRSA. IMPRESSION: 1. Nonischemic cardiomyopathy. 2. History of automatic implantable cardioverter-defibrillator placement. 3. Hypertension. 4. End-stage renal disease. 5. Staphylococcus sepsis. PLAN: This gentleman with a history of a severe cardiomyopathy, presented with Staph sepsis. He has been treated with antibiotics. He remains afebrile. From a cardiac standpoint, he is on appropriate medications. We would recommend restarting his Corlanor as per Dr. Lay. We will try and get records from his office. We will continue IV antibiotics. We will follow this patient with you through his hospitalization. Job ID: [id number] [facility]
[2019-12-24] MEDS: Ivabradine 5 MG TAB PO SCH (21:00)
[2019-12-25 07:15] LABS: Hemoglobin 8.3 g/dL (14.0-18.0); Mean Corpuscular HGB CONC 33.5 g/dL (32.0-36.0); Mean Corpuscular Volume 98.3 fL (78.0-98.0); Platelet Count 112 thou/uL (130-400); RBC Distribution Width 15.6 % (11.5-14.5); Red Blood Cell (RBC) Count 2.51 mill/uL (4.70-6.10); White Blood Cell (WBC) Count 6.9 thou/uL (4.8-10.8)
[2019-12-25 07:30] LABS: Anion Gap 19 mmol/L (10-20); BUN (Urea Nitrogen) 38 mg/dL (8.9-20.6); Calc. Creatinine Clearance 11 mL/min (70-130); Calcium 9.3 mg/dL (7.8-10.44); Carbon Dioxide 27 mmol/L (22-29); Chloride 96 mmol/L (98-107); Estimated GFR-MDRD 10; Glucose 98 mg/dL (70-105); Potassium 4.1 mmol/L (3.5-5.1); Sodium 138 mmol/L (136-145)
[2019-12-25 07:49] LABS: Eosinophils 4 % (0-10); Hypochromia SLIGHT = 6-15 cells (100X) (0-5/hpf); Lymphocytes 14 % (21-51); MDiff Complete? YES; Monocytes 14 % (0-10); Neutrophil 68 % (42-75); Platelet Morphology Comment Appears Decreased
[2019-12-25] MEDS: Magnesium Oxide 400 MG TAB PO SCH ×2 (09:06→20:56)
[2019-12-25] MEDS: Isosorbide Mononitrate (ER) 30 MG TAB PO SCH (09:06)
[2019-12-25] MEDS: hydrALAZINE 25 MG TAB PO SCH ×3 (09:06→20:56)
[2019-12-25] MEDS: Ivabradine 5 MG TAB PO SCH ×2 (09:06→20:56)
[2019-12-25] MEDS: Carvedilol 25 MG TAB PO SCH ×2 (09:06→17:33)
--- NOTE | 2019-12-25 10:59 | PDOC.HOSPP ---
- Subjective Encounter Date: 12/25/19 Encounter Time: 10:15 Subjective: Patient seen and examined for Sepsis/SEBLE. Tolerating dialysis. No fever or chills. No new complaints. No overnight events - Objective Vital Signs & Weight: Vital Signs (12 hours) Temp Pulse Resp BP BP Pulse Ox 12/25/19 09:06 84 12/25/19 07:34 99.1 F 84 18 129/72 99 12/25/19 03:24 98.6 F 77 16 129/76 100 12/24/19 23:13 98.8 F 79 16 131/80 96 Weight Admit Weight 149 lb 9.6 oz Weight 124 lb 8.979 oz Most Recent Monitor Data Heart Rate from ECG 85 NIBP 145/87 Respiration from ECG 18 I&O: 12/24/19 12/25/19 12/26/19 06:59 06:59 06:59 Intake Total 360 Output Total 2600 Balance -2240 Result Diagrams: 12/25/19 07:02 12/25/19 07:02 EKG Reviewed by me: Yes (Tele SR) Hospitalist ROS - Review of Systems Respiratory: denies: cough, dry, shortness of breath, hemoptysis, SOB with excertion, pleuritic pain, sputum, wheezing, other Cardiovascular: denies: chest pain, palpitations, orthopnea, paroxysmal noc. dyspnea, edema, light headedness, other - Medication Medications: Active Medications Generic Name Dose Route Start Last Admin Trade Name Freq PRN Reason Stop Dose Admin Acetaminophen 1,000 mg 12/22/19 10:33 12/22/19 16:44 Tylenol PO 1,000 mg Q6H PRN Administration Moderate to Severe Pain (6-10) Carvedilol 25 mg 12/14/19 17:00 12/25/19 09:06 Coreg PO 25 mg BID-WM MAURA Administration Guaifenesin/Codeine Phosphate 10 ml 12/20/19 18:38 12/20/19 19:13 Robitussin Ac PO 10 ml Q6H PRN Administration Cough Hydralazine HCl 10 mg 12/13/19 20:05 12/14/19 01:58 Apresoline SLOW IVP 10 mg Q4H PRN Administration SBP Greater Than 180 Hydralazine HCl 25 mg 12/22/19 15:00 12/25/19 09:06 Apresoline PO 25 mg TID MAURA Administration Isosorbide Mononitrate 30 mg 12/14/19 09:00 12/25/19 09:06 Imdur Er PO 30 mg DAILY MAURA Administration Ivabradine 5 mg 12/24/19 21:00 12/25/19 09:06 Corlanor PO 5 mg BID MAURA Administration Magnesium Oxide 400 mg 12/14/19 09:00 12/25/19 09:06 Magnesium Oxide PO 400 mg BID MAURA Administration Ondansetron HCl 4 mg 12/20/19 08:04 12/20/19 08:35 Zofran IVP 4 mg Q6H PRN Administration Nausea/Vomiting Sodium Chloride 10 ml 12/14/19 09:00 12/25/19 09:07 Flush - Normal Saline IVF 10 ml Q12HR MAURA Administration - Exam General Appearance: NAD Heart: RRR, no gallops Respiratory: no wheezes, no ronchi Gastrointestinal: soft, non-tender, normal bowel sounds Extremities: no cyanosis, no clubbing Hosp A/P - Plan DVT proph w/SCDs 1. SEBLE on CKD 5/ESRD - started on dialysis. 2. MRSA Severe sepsis due to infected dialysis catheter. 3. Tobacco dependence. 4. Cardiomyopathy with ejection fraction 35% range with NSVT s/p AICD. 5. h/o Sinus tachycardia - on Corlanor. 6. Type 2 myocardial infarction, present on admission. 7. Chronic thrombocytopenia. 8. Anemia secondary to renal insufficiency. 9. Hyperkalemia/hyponatremia, improved. 10. h/o Mental retardatuibn 11. ACEI allergy PLAN: Repeat blood cultures per ID Outpt dialysis arranged Cont IV Vancomcyin Monitor Vancomycin level Cont Coreg/Corlanor Cont other meds as above No ARB/aldactone due to CKD. Pt is allergic to ACEI DC planning
--- NOTE | 2019-12-25 16:28 | PRG ---
DATE OF SERVICE: 12/25/2019 SUBJECTIVE: Kind of apathetic, but responsive to questions. Kind of monosyllabic responses mostly. Denies headaches. No shortness of breath. The soreness in the areas of surgical intervention is still there, but only moderate. OBJECTIVE: VITAL SIGNS: T-max 99.7, BP 106/62, pulse 72, respirations 16, and O2 saturation 96%. GENERAL: Appears in no distress. Right tunneled IJ catheter, right AV fistula procedure site. LUNGS: Clear. HEART: S1, S2 regular rate. ABDOMEN: Soft. Not distended. EXTREMITIES: Moves extremities equally. LABORATORY DATA: White cell count is at 6.9, hemoglobin 8.3, platelets 112, looks like platelets getting better slowly. Neutrophil count is 68%. Chemistries, not remarkable. ASSESSMENT AND DISCUSSION: Cardiomyopathy of uncertain etiology, automatic implantable cardioverter defibrillator, end-stage renal disease of uncertain etiology, methicillin-resistant Staphylococcus aureus bacteremia secondary to groin triple-lumen catheter which has been removed. The patient to receive four weeks of sliding scale vancomycin after discharge planning. Continue monitoring for distant sites of dissemination, particularly spine, which is not apparent at this time. Job ID: [id number]
[2019-12-26] MEDS: hydrALAZINE 25 MG TAB PO SCH ×3 (08:46→20:24)
[2019-12-26] MEDS: Ivabradine 5 MG TAB PO SCH ×2 (08:46→20:25)
[2019-12-26] MEDS: Saccharomyces boulardii 250 MG CAP PO SCH (08:46)
[2019-12-26] MEDS: Isosorbide Mononitrate (ER) 30 MG TAB PO SCH (08:46)
[2019-12-26] MEDS: Carvedilol 25 MG TAB PO SCH ×2 (08:46→17:46)
[2019-12-26] MEDS: Magnesium Oxide 400 MG TAB PO SCH ×2 (08:46→20:24)
--- NOTE | 2019-12-26 14:25 | PDOC.HOSPP ---
- Subjective Encounter Date: 12/26/19 Encounter Time: 13:00 Subjective: Patient seen and examined for Sepsis/SEBLE. No N/V/CP. No new complaints. No overnight events - Objective Vital Signs & Weight: Vital Signs (12 hours) Temp Pulse Resp BP Pulse Ox 12/26/19 11:13 97.8 F 68 18 129/73 98 12/26/19 08:52 95 12/26/19 08:46 73 12/26/19 07:10 99.1 F 73 16 125/73 98 12/26/19 03:40 98.7 F 76 15 130/80 97 Weight Admit Weight 149 lb 9.6 oz Weight 132 lb 4.438 oz Most Recent Monitor Data Heart Rate from ECG 85 NIBP 145/87 Respiration from ECG 18 I&O: 12/25/19 12/26/19 12/27/19 06:59 06:59 06:59 Intake Total 360 1380 Output Total 2600 Balance -2240 1380 Result Diagrams: 12/25/19 07:02 12/25/19 07:02 EKG Reviewed by me: Yes (Tele SR) Hospitalist ROS - Review of Systems Respiratory: denies: cough, dry, shortness of breath, hemoptysis, SOB with excertion, pleuritic pain, sputum, wheezing, other Cardiovascular: denies: chest pain, palpitations, orthopnea, paroxysmal noc. dyspnea, edema, light headedness, other - Medication Medications: Active Medications Generic Name Dose Route Start Last Admin Trade Name Freq PRN Reason Stop Dose Admin Acetaminophen 1,000 mg 12/22/19 10:33 12/22/19 16:44 Tylenol PO 1,000 mg Q6H PRN Administration Moderate to Severe Pain (6-10) Carvedilol 25 mg 12/14/19 17:00 12/26/19 08:46 Coreg PO 25 mg BID-WM MAURA Administration Guaifenesin/Codeine Phosphate 10 ml 12/20/19 18:38 12/20/19 19:13 Robitussin Ac PO 10 ml Q6H PRN Administration Cough Hydralazine HCl 10 mg 12/13/19 20:05 12/14/19 01:58 Apresoline SLOW IVP 10 mg Q4H PRN Administration SBP Greater Than 180 Hydralazine HCl 25 mg 12/22/19 15:00 12/26/19 08:46 Apresoline PO 25 mg TID MAURA Administration Isosorbide Mononitrate 30 mg 12/14/19 09:00 12/26/19 08:46 Imdur Er PO 30 mg DAILY MAURA Administration Ivabradine 5 mg 12/24/19 21:00 12/26/19 08:46 Corlanor PO 5 mg BID MAURA Administration Magnesium Oxide 400 mg 12/14/19 09:00 12/26/19 08:46 Magnesium Oxide PO 400 mg BID MAURA Administration Ondansetron HCl 4 mg 12/20/19 08:04 12/20/19 08:35 Zofran IVP 4 mg Q6H PRN Administration Nausea/Vomiting Saccharomyces Boulardii 250 mg 12/26/19 09:00 12/26/19 08:46 Florastor PO 250 mg DAILY MAURA Administration Sodium Chloride 10 ml 12/14/19 09:00 12/26/19 08:47 Flush - Normal Saline IVF 10 ml Q12HR MAURA Administration - Exam General Appearance: NAD Heart: RRR, no gallops Respiratory: no wheezes, no ronchi Gastrointestinal: soft, non-tender, normal bowel sounds Extremities: no cyanosis Hosp A/P - Plan DVT proph w/SCDs 1. SEBLE on CKD 5/ESRD - started on dialysis. 2. MRSA Severe sepsis due to infected dialysis catheter. 3. Tobacco dependence. 4. Cardiomyopathy with ejection fraction 35% range with NSVT s/p AICD. 5. h/o Sinus tachycardia - on Corlanor. 6. Type 2 myocardial infarction, present on admission. 7. Chronic thrombocytopenia. 8. Anemia secondary to renal insufficiency. 9. Hyperkalemia/hyponatremia, improved. 10. h/o Mental retardatuibn 11. ACEI allergy PLAN: Cont IV Vancomcyin Repeat blood cultures pending Outpt dialysis arranged - TTS Cont Coreg/Corlanor No ARB/aldactone due to CKD. Pt is allergic to ACEI Cont other meds as above DC if repeat cultures negative at 48 hr
--- NOTE | 2019-12-27 06:08 | PRG ---
DATE OF SERVICE: 12/25/2019 SUBJECTIVE: The patient noted with the following vital signs. OBJECTIVE: VITAL SIGNS: Afebrile at 97.8, pulse is 80, respiratory rate of 18, O2 saturation is 98%, blood pressure 129/73. HEENT: Unremarkable. CARDIOVASCULAR SYSTEM: First and second heart sounds re heard. RESPIRATORY SYSTEM: Clear to auscultation. DIGESTIVE SYSTEM: Revealed a benign abdomen with positive bowel sounds. EXTREMITIES: No peripheral edema. SKIN: There is no new gross rash. LYMPHATICS: No peripheral lymphadenopathy. Routine investigation showed a to the creatine showed a creatinine of 7.11 with . IMPRESSION: 1. End-stage renal disease, on hemodialysis. 2. Cardiomyopathy. 3. Acute anemia from underlying infection. PLAN: 1. The patient to continue with the schedule of Friday, Friday, Friday dialysis to outpatient dialysis placement progress. 2. Once the patient is medically stable for discharge . Job ID: [id number]
[2019-12-27 06:20] LABS: Anion Gap 18 mmol/L (10-20); BUN (Urea Nitrogen) 64 mg/dL (8.9-20.6); Calc. Creatinine Clearance 7 mL/min (70-130); Calcium 9.1 mg/dL (7.8-10.44); Carbon Dioxide 26 mmol/L (22-29); Chloride 94 mmol/L (98-107); Estimated GFR-MDRD 6; Glucose 120 mg/dL (70-105); Magnesium 2.7 mg/dL (1.6-2.6); Potassium 4.6 mmol/L (3.5-5.1); Sodium 133 mmol/L (136-145)
[2019-12-27 09:17] LABS: Vancomycin, Random 9.4 ug/mL (See Comment)
[2019-12-27] MEDS ORDERED: Vancomycin 1 GM in Premix Bag 1 BAG IVPB SCH (10:45)
[2019-12-27] MEDS ORDERED: Vancomycin HCl 500 MG in Sodium Chloride 0.9% 100 ML IVPB SCH (10:45)
[2019-12-27] MEDS ORDERED: Vancomycin HCl 750 MG in Sodium Chloride 0.9% 250 ML 250 ML IVPB SCH (10:45)
[2019-12-27] MEDS ORDERED: Vancomycin Sliding Scale 1 EACH FS ONE (10:45)
[2019-12-27] MEDS ORDERED: HOLD VANCOMYCIN FOR LEVEL >20 FS SCH (10:45)
[2019-12-27] MEDS ORDERED: Vancomycin HCl 1.25 GM in Sodium Chloride 0.9% 250 ML 250 ML IVPB SCH (10:45)
--- NOTE | 2019-12-27 11:25 | DIS ---
DATE OF ADMISSION: 12/13/2019 DATE OF DISCHARGE: 12/27/2019 DISCHARGE DISPOSITION: Return to [facility]. FOLLOWUP: 1. The patient will follow up with Dr. Ignacio Pablo at the nursing facility. 2. The patient to follow Dr. Ori Jones for dialysis management. 3. The patient was advised to follow up with Infectious Disease, Dr. Wang in 3 to 4 weeks. 4. Follow up with Dr. Kruger as scheduled. 5. The patient was advised to follow up on the final blood cultures. ALLERGIES: THE PATIENT IS ALLERGIC TO ANIRUDH INHIBITOR. DISCHARGE MEDICATIONS: 1. Vancomycin sliding scale for next 4 weeks. 2. Florastor 250 mg daily. 3. Hydralazine 25 mg 3 times a day. 4. Mag oxide 400 mg b.i.d. 5. Corlanor 5 mg b.i.d. 6. Carvedilol 25 mg b.i.d. 7. Epogen as directed. INPATIENT CONSULTANTS: Cardiology, Dr. Eric Bland. Infectious Disease, Dr. Wang. Nephrology, Dr. Ori Jones. General Surgery, Dr. Kruger for dialysis access. INPATIENT PROCEDURES: 1. On December 13, 2019, the patient underwent Trialysis catheter placement in the right femoral vein. 2. On December 22, 2019, the patient underwent right internal jugular cuffed tunneled hemodialysis catheter along with right arm primary AV fistula. 3. Echocardiogram showed ejection fraction around 30% range with [id number] mitral regurgitation and moderate tricuspid regurgitation. BRIEF HOSPITAL COURSE: The patient is a 44-year-old male with CKD and congestive heart failure, presented to the hospital with fever and generalized weakness. His workup was consistent with acute kidney injury with creatinine of 7.43 on admission. His potassium on admission was 5.6. He also had metabolic acidosis. He was started on hemodialysis. COVID19 came back negative. Later on, he started spiking fever. His blood cultures were drawn on the December 19, 2019 that was consistent with two of two methicillin-resistant Staph aureus sensitive to vancomycin. The femoral Trialysis catheter was removed. The culture tip came back positive for Staph hominis, greater than 15 colony-forming units. On December 24, he underwent a repeat blood culture. This has been negative so far. Primary care physician is advised to follow up on the final blood cultures. He was evaluated by several consultants as discussed above. Please refer to the consultation notes for further details. He has been tolerating dialysis. His outpatient dialysis has been set up. He will continue vancomycin for another four weeks per Infectious Disease recommendation. FINAL DIAGNOSES: 1. Acute kidney injury on chronic kidney disease stage 5/end-stage renal disease, started on hemodialysis. 2. Methicillin-resistant Staphylococcus aureus severe sepsis due to infected Trialysis femoral catheter. 3. Tobacco dependence, the patient was counseled. 4. Cardiomyopathy with ejection fraction 35% range. 5. Nonsustained ventricular tachycardia. 6. History of automatic implantable cardioverter-defibrillator placement. 7. History of sinus tachycardia on Corlanor. 8. Type 2 myocardial infarction present on admission. 9. Chronic thrombocytopenia. 10. Anemia secondary to renal insufficiency. 11. Hyperkalemia corrected. 12. Hyponatremia. 13. Angiotensin-converting enzyme inhibitor allergy. 14. History of mental retardation. 15. Moderate tricuspid regurgitation. 16. [id number] mitral regurgitation. TIME SPENT: Time coordinating the discharge of this patient was 37 minutes. Job ID: [id number]
[2019-12-27] MEDS: Isosorbide Mononitrate (ER) 30 MG TAB PO SCH (11:36)
[2019-12-27] MEDS: Carvedilol 25 MG TAB PO SCH (11:36)
[2019-12-27] MEDS: hydrALAZINE 25 MG TAB PO SCH (11:36)
[2019-12-27] MEDS: Magnesium Oxide 400 MG TAB PO SCH (11:37)
[2019-12-27] MEDS: Saccharomyces boulardii 250 MG CAP PO SCH (11:37)
[2019-12-27] MEDS: Ivabradine 5 MG TAB PO SCH (11:37)
[2019-12-27 11:57] VITALS: BP 140/77; TEMP 97.7
--- NOTE | 2019-12-27 15:11 | PRG ---
DATE OF SERVICE: 12/27/2019 SUBJECTIVE: Feeling less pain or almost no pain in the neck and right arm surgical site. No dyspnea or chest pain. No abdominal pain or diarrhea and he is afebrile. OBJECTIVE: LUNGS: Clear. HEART: S1 and S2. Regular rate. The surgical sites without inflammatory changes or drainage. NEUROLOGIC: Nonfocal. LABORATORY DATA: White cell count 6.9, hemoglobin 8.3, and platelets 112,000. ASSESSMENT AND DISCUSSION: Cardiomyopathy of uncertain etiology, automatic implantable cardioverter-defibrillator in place, end-stage renal disease of uncertain etiology, and methicillin-resistant Staphylococcus aureus bacteremia secondary to groin triple-lumen catheter. The patient to receive four weeks of sliding scale vancomycin after discharge. Continue to monitor for distant sites of dissemination. Job ID: [id number]
--- NOTE | 2019-12-28 15:42 | PRG ---
DATE OF SERVICE: 12/27/2019 SUBJECTIVE: The patient noted with the following vital signs. OBJECTIVE: VITAL SIGNS: Afebrile. Temperature 97.7, pulse 77, respiratory rate of 16, O2 saturation of 98%, blood pressure 140/77. HEENT: Unremarkable. CARDIOVASCULAR: First and second heart sounds were heard. RESPIRATORY: Clear to auscultation. EXTREMITIES: No peripheral edema. SKIN: No new gross rash. IMPRESSION: 1. End-stage renal disease, hemodialysis dependent. 2. Advanced cardiomyopathy. 3. Methicillin-resistant Staphylococcus aureus bacteremia, on treatment. PLAN: 1. The patient seems to be doing very well and has been accepted for outpatient dialysis treatments at [facility] . 2. From the renal standpoint, the patient can be discharged today after a short run of dialysis, so the schedule of this patient is changing from Friday, Friday, and Friday to Friday, , and Friday. 3. Further management to be dependent on the clinical course. Job ID: [id number]
== END 2019-12-27 14:45 | DRG 673 ==
LOC: ERS 10:12 → 2SW 12:52
PROVIDERS: ADMIT Internal Medicine; ATTEND Internal Medicine
PROC: 8E0ZXY6 Isolation (ICD-10-PCS; 2019-12-13)
PROC: 06HY33Z Insertion of Infusion Device into Lower Vein, Percutaneous Approach (ICD-10-PCS; 2019-12-13)
PROC: 05PYX3Z Removal of Infusion Device from Upper Vein, External Approach (ICD-10-PCS; 2019-12-13)
PROC: 30233N1 Transfusion of Nonautologous Red Blood Cells into Peripheral Vein, Percutaneous Approach (ICD-10-PCS; 2019-12-13)
PROC: 5A1D70Z Performance of Urinary Filtration, Intermittent, Less than 6 Hours Per Day (ICD-10-PCS; principal; 2019-12-18)
PROC: 031B0ZF Bypass Right Radial Artery to Lower Arm Vein, Open Approach (ICD-10-PCS; 2019-12-22)
PROC: 0JH63XZ Insertion of Tunneled Vascular Access Device into Chest Subcutaneous Tissue and Fascia, Percutaneous Approach (ICD-10-PCS; 2019-12-22)
PROC: 05HM33Z Insertion of Infusion Device into Right Internal Jugular Vein, Percutaneous Approach (ICD-10-PCS; 2019-12-22)
PROC: B513ZZA Fluoroscopy of Right Jugular Veins, Guidance (ICD-10-PCS; 2019-12-22)
PROC: B543ZZA Ultrasonography of Right Jugular Veins, Guidance (ICD-10-PCS; 2019-12-22)
DX: N17.9 Acute kidney failure, unspecified (principal); A41.02 Sepsis due to Methicillin resistant Staphylococcus aureus; T80.211A Bloodstream infection due to central venous catheter, initial encounter; I21.A1 Myocardial infarction type 2; R65.20 Severe sepsis without septic shock; I50.21 Acute systolic (congestive) heart failure; I47.2 Ventricular tachycardia; E87.1 Hypo-osmolality and hyponatremia; D62 Acute posthemorrhagic anemia; I42.8 Other cardiomyopathies; I13.2 Hypertensive heart and chronic kidney disease with heart failure and with stage 5 chronic kidney disease, or end stage renal disease; E87.2 Acidosis; T82.838A Hemorrhage due to vascular prosthetic devices, implants and grafts, initial encounter; Z20.828 Contact with and (suspected) exposure to other viral communicable diseases; N18.6 End stage renal disease; F17.210 Nicotine dependence, cigarettes, uncomplicated; D69.6 Thrombocytopenia, unspecified; D63.1 Anemia in chronic kidney disease; E87.5 Hyperkalemia; T46.4X5A Adverse effect of angiotensin-converting-enzyme inhibitors, initial encounter; F79 Unspecified intellectual disabilities; I08.1 Rheumatic disorders of both mitral and tricuspid valves; E11.22 Type 2 diabetes mellitus with diabetic chronic kidney disease; K74.60 Unspecified cirrhosis of liver; Y83.1 Surgical operation with implant of artificial internal device as the cause of abnormal reaction of the patient, or of later complication, without mention of misadventure at the time of the procedure; Z79.899 Other long term (current) drug therapy; Z95.810 Presence of automatic (implantable) cardiac defibrillator
CPT/HCPCS: 36415; 36430; 71045; 80048; 80053; 80069; 80202; 81003; 81015; 82553; 82728; 82805; 83540; 83550; 83605; 83735; 83970; 84484; 85025; 86580; 86704; 86706; 86803; 86850; 86900; 86901; 87040; 87071; 87077; 87149; 87186; 87340; 87635; 90935; 93005; 93306; 93970; 94640; 94760; C1752; C1769; G0257; G0365; J0360; J0690; J0692; J1100; J1642; J1644; J1650; J1815; J2001; J2405; J2704; J2720; J3010; J3370; J3490; J7050; J7620; P9016; Q9967; S0020; U0002

== ENCOUNTER 2020-01-30 01:22 | Emergency (ER) | payer MEDICARE | END 2020-01-30 07:45 | disposition home or self-care (01) | LOC: ERS 01:22 | DX: D64.9 Anemia, unspecified (principal); I12.0 Hypertensive chronic kidney disease with stage 5 chronic kidney disease or end stage renal disease; N18.9 Chronic kidney disease, unspecified; K74.60 Unspecified cirrhosis of liver; J44.9 Chronic obstructive pulmonary disease, unspecified; F17.210 Nicotine dependence, cigarettes, uncomplicated; Z79.891 Long term (current) use of opiate analgesic; Z79.899 Other long term (current) drug therapy | CPT/HCPCS: 36430; 86850; 86900; 86901; 86920; P9016; 36415; 99284 ==

== ENCOUNTER 2020-04-03 07:33 | Day surgery (SDC) | payer MEDICARE ==
[2020-03-31 13:41] VITALS: BMI 17.3
[2020-04-03] MEDS ORDERED: Sodium Bicarbonate 2.5 MEQ/5 ML VIAL ONE (07:41)
[2020-04-03] MEDS ORDERED: Lidocaine 1% PF 5 ML VIAL ONE (07:41)
--- NOTE | 2020-04-03 08:43 | ULT ---
Exam: Ultrasound guided paracentesis HISTORY: Ascites COMPARISON: None FINDINGS: Successful ultrasound-guided paracentesis. Total of 3400 ccascites was aspirated. TECHNIQUE: Consent obtained reformatory ultrasound-guided paracentesis. Right lower quadrant was deem ed appropriate. Skin was prepped and draped in a sterile fashion. 1% lidocaine, buffered with sodium bicarbonate was used for local anesthesia. Under ultrasound guidance, a 5 Green[place]ic 7 cm Yueh cat heter is advanced in the peritoneal space. A total of 3400ascites was aspirated. No immediate or postprocedural complications IMPRESSION: Successful ultrasound-guided paracentesis.
[2020-04-03 10:53] VITALS: BP 107/68; TEMP 98.2
== END 2020-04-03 08:40 ==
LOC: ULT 07:33
PROVIDERS: ATTEND Internal Medicine Nephrology
PROC: 0W9G3ZZ Drainage of Peritoneal Cavity, Percutaneous Approach (ICD-10-PCS; principal; 2020-04-03)
DX: K74.60 Unspecified cirrhosis of liver (principal); R18.8 Other ascites; I25.2 Old myocardial infarction; J44.9 Chronic obstructive pulmonary disease, unspecified; I12.0 Hypertensive chronic kidney disease with stage 5 chronic kidney disease or end stage renal disease; N18.6 End stage renal disease; D63.1 Anemia in chronic kidney disease; F70 Mild intellectual disabilities; Z79.899 Other long term (current) drug therapy; Z88.8 Allergy status to other drugs, medicaments and biological substances; Z99.2 Dependence on renal dialysis
CPT/HCPCS: 49083